=== PATIENT | female | born 1970 | race Caucasian/White ===

== ENCOUNTER 2022-01-16 08:24 | Emergency (ER) | payer SELFPAY ==
--- NOTE | ~2022-01-16 | XR_ITS ---
EXAMINATION: XR KNEE, RIGHT CLINICAL INFORMATION: Knee pain COMPARISON: None TECHNIQUE: 5 images submitted of the right knee. FINDINGS: Trace effusion. Mild patellofemoral spurring. Lateral joint space loss with osteophytic spurring along the marginal aspects. Tibial spine spurring is also noted here. There is no evidence for an acute fracture or dislocation. No bony erosion. Likely degeneration at the articulation of the fibula with the tibia. XR/XR knee RT 3V IMPRESSION: Moderate degenerative changes. No acute finding. Trace effusions likely present.
[2022-01-16 08:56] VITALS: BP 145/74; PULSE 75; RESP 16; TEMP 36.8; O2SAT 98; BMI 41.9
[2022-01-16] MEDS: Ketorolac Tromethamine 30 MG/ML VIAL IM (09:43)
--- NOTE | 2022-01-16 09:44 | ED_ITS ---
HPI - Extremity Injury (Lower) General Chief Complaint: Extremity Injury, Lower Stated Complaint: R knee pain Time Seen by Provider: 01/16/22 09:09 Source: patient Mode of arrival: ambulatory History of Present Illness HPI Narrative: 51-year-old female with no significant past medical history presenting to the ED complaining of right knee pain s/p hyperextension injury after tripping over baseboard last night. Denies falling all the way to ground, direct trauma, head trauma, LOC, Omnicef, tingling, weakness. Has been minimally ambulatory since incident MD complaint: knee injury Onset (ago): hour(s) Related Data Previous Rx's Medication Instructions Recorded acetaminophen 500 mg tablet 500 mg PO Q6H PRN fever or pain 01/16/22 (Tylenol Extra Strength) #14 tabs naproxen 500 mg tablet 500 mg PO BID PRN pain 10 days #20 01/16/22 tabs Allergies Allergy/AdvReac Type Severity Reaction Status Date / Time No Known Allergies Allergy Verified 01/16/22 09:10 Review of Systems Review of Systems: Constitutional: No Fever, No Chills ENT/Mouth: No Ear Pain, No Nasal Congestion, No sore throat, No Swallowing Difficulty Cardiovascular: No Chest Pain, No SOB Respiratory: No Cough Gastrointestinal: No Nausea, No Vomiting, No Diarrhea, No Constipation, No Abdominal pain Genitourinary: No Dysuria, No Urinary Frequency, No Flank Pain Musculoskeletal: + joint pain, No Myalgias, + Joint Swelling Skin: No Skin Lesions, No rash Neuro: No Weakness, No Numbness, No Paresthesias Yes all other systems are reviewed and are negative Constitutional: Constitutional: Reports as per [facility] Past Medical History Attestation statement: The following information was validated with the patient. Social History Social History Advance Directives: No Advance Directives Information Provided: Yes Physical Exam Vital Signs: Vital Signs: Last Vital Signs Temp 98.3 F 01/16/22 08:56 Pulse 75 01/16/22 08:56 Resp 16 01/16/22 08:56 BP 145/74 H 01/16/22 08:56 Pulse Ox 98 01/16/22 08:56 O2 Del Method 01/16/22 08:56 BMI result Body Mass Index 41.9 Const: General: cooperative, healthy appearing and no acute distress Orientation/consciousness: patient oriented x3 Limitations: no limitations HEENT: Head: Yes normal to inspection and Yes atraumatic Ears: hearing grossly normal bilaterally General nose exam: Normal external nose present Face and sinus: Yes normal facial exam Eyes: General: appearance normal, both eyes and all related structures EOM: EOMs intact bilaterally Neck: Neck: Yes normal visual inspection and Yes no meningeal signs Resp: Effort & Inspection: normal respiratory effort and no respiratory distress Cardio: Rate: regular rate Heart sounds: S1 normal heart sound present and S2 normal heart sound present Peripheral pulses: dorsalis pedis present GI: Inspection: Yes normal to inspection Palpation (GI): Soft to palpation, nontender, no guarding and not rigid Skin: Rashes: no rashes Wounds: no wounds Neuro: General: patient oriented x3, tone normal and no meningeal signs Gait exam (Neuro): Normal gait present Extrem: Other: Right knee with mild swelling. Diffusely tender to palpation. Flexion intact, extension limited secondary to pain. Neurovascular intact distally. No erythema or crepitus. No warmth Course Course Course Narrative: XR knee RT 3V IMPRESSION: Moderate degenerative changes. No acute finding. Trace effusions likely present. > Jasbir wrap applied for compression. Recommended patient follow-up with PCP/Orthopedics. Supplied with crutches MDM - Extremity Injury (Lower) MDM Narrative Medical decision making narrative: 51-year-old female with no significant past medical history presenting to the ED complaining of right knee pain s/p hyperextension injury after tripping over baseboard last night. On exam vital signs stable, NAD, physical exam as above. Concern for ligamental injury vs tendon strain or meniscal injury. Rule out fracture. Plan: X-rays Differential Diagnosis Differential diagnosis: Likely acute internal derangement of knee Medical Records Attestation: I reviewed the patient's medical records. Lab Data Attestation: I reviewed the patient's lab results. Procedures Orthopedic Splinting/Casting Injury #1: Side: right Lower Extremity Injury Location: knee Lower Extremity Immobilizer: Jasbir wrap Other Orthopedic Equipment: crutches Discharge Plan Discharge Clinical Impression: Knee sprain Patient Disposition: Home, Self-Care Instructions: Knee Sprain (ED), Crutch Instructions (ED) Additional Instructions: Your x-ray does not show any fracture, does show some fluid on the joint. Wear Jasbir wrap for compression and stability. Use crutches as needed, bear weight as tolerated. It is important for you to follow-up with her primary care doctor and Orthopedics. Ice and elevate Naproxen as an anti-inflammatory/pain medication, take with food. In addition take Tylenol Prescriptions: New acetaminophen [Tylenol Extra Strength] 500 mg tablet 500 mg PO Q6H PRN (Reason: fever or pain) Qty: 14 0RF naproxen 500 mg tablet 500 mg PO BID PRN (Reason: pain) 10 Days Qty: 20 0RF Referrals: Rubi Marcial PA-C [Physician Public Policy Associate] - 1 week
== END 2022-01-16 10:49 | disposition home or self-care (01) ==
PROVIDERS: Emergency Provider Emergency Medicine Emergency Medical Services
DX: S83.91XA Sprain of unspecified site of right knee, initial encounter (principal); W22.8XXA Striking against or struck by other objects, initial encounter; Y93.89 Activity, other specified; Y92.009 Unspecified place in unspecified non-institutional (private) residence as the place of occurrence of the external cause; Y99.9 Unspecified external cause status
CPT/HCPCS: 73562; 96372; 99283; 99284; J1885

== ENCOUNTER 2024-03-13 12:41 | Emergency (ER) | payer OTHER, SELFPAY ==
--- NOTE | ~2024-03-13 | US_ITS ---
EXAMINATION: US PELVIS CLINICAL INFORMATION: Vaginal bleeding, fibroids/ovarian COMPARISON: None available. TECHNIQUE: Ultrasound of the pelvis is performed using both transabdominal and transvaginal transducers along with Doppler. Transvaginal imaging is performed due to inadequate visualization transabdominally. FINDINGS: Uterus: The uterus is anteverted and measures 10.3 x 4.7 x 7.0 cm. The double wall endometrial thickness is 1.1 cm. Uterus revealed multiple uterine fibroids, measured 8.9 x 6.2 x 8.0 cm on the right, 4.8 x 5.5 x 5.2 cm on the left and 5.6 x 4.9 x 5.1 cm in the fundus, all fibroids are unabated endometrium Adnexa: Both ovaries are visualized. There is normal color flow to the adnexa. There is no ovarian torsion. There is no pelvic ascites or fluid collection. There is 2.5 x 2.1 x 1.9 cm cyst in right ovary Right ovary measures 4.5 x 4.2 x 4.2 cm cm. Left ovary measures 3.0 x 1.9 x 3.0 cm. US/US pelvic ovarian doppler IMPRESSION: Multiple uterine fibroids abating endometrium. Left ovarian cyst Electronically signed by: Kashif Serrano MD 03/13/2024 03:38 PM EDT
--- NOTE | ~2024-03-13 | US_ITS ---
EXAMINATION: US PELVIS CLINICAL INFORMATION: Vaginal bleeding, fibroids/ovarian COMPARISON: None available. TECHNIQUE: Ultrasound of the pelvis is performed using both transabdominal and transvaginal transducers along with Doppler. Transvaginal imaging is performed due to inadequate visualization transabdominally. FINDINGS: Uterus: The uterus is anteverted and measures 10.3 x 4.7 x 7.0 cm. The double wall endometrial thickness is 1.1 cm. Uterus revealed multiple uterine fibroids, measured 8.9 x 6.2 x 8.0 cm on the right, 4.8 x 5.5 x 5.2 cm on the left and 5.6 x 4.9 x 5.1 cm in the fundus, all fibroids are unabated endometrium Adnexa: Both ovaries are visualized. There is normal color flow to the adnexa. There is no ovarian torsion. There is no pelvic ascites or fluid collection. There is 2.5 x 2.1 x 1.9 cm cyst in right ovary Right ovary measures 4.5 x 4.2 x 4.2 cm cm. Left ovary measures 3.0 x 1.9 x 3.0 cm. US/US pelvic and transvaginal IMPRESSION: Multiple uterine fibroids abating endometrium. Left ovarian cyst Electronically signed by: Kashif Serrano MD 03/13/2024 03:38 PM EDT
[2024-03-13 13:00] VITALS: BP 151/86; PULSE 79; RESP 18; TEMP 36.6; O2SAT 100; BMI 44.3
--- NOTE | 2024-03-13 13:04 | ED_ITS ---
HPI - General Adult General Chief complaint: Vaginal Bleeding Stated complaint: menstrual for 30 days-sent by urgent care Time Seen by Provider: 03/13/24 18:02 Source: patient, RN notes reviewed and old records reviewed Mode of arrival: ambulatory Limitations: no limitations History of Present Illness ED Provider: Rosa HPI narrative: 53-year-old female presents for 1 month of heavy menstrual bleeding. She says that since February 14 she has had steady menstrual bleeding. States that she was passing clots, number pads that she uses per day changes. She denies lower abdominal pain, pelvic pain, dyspareunia. She says typically her menstrual cycle is regular, lasting 1 month in duration, with 5-6 days of bleeding, that she describes this heavy. She last had this issue in January of 2022, at which point she was told she had fibroids, and had this follow up with a specialist. She says that she did not follow up with a specialist and that her symptoms resolved on their own. She reports 1 daughter born via C- section , 1 spontaneous in 2007. She is sexually active with 1 partner, states that she has no plans to become again. She denies fever dizziness or other systemic symptoms. The patient reports that she has previously been told that she has anemia and was supposed to be taking iron pills which she has not been doing Related Data Previous Rx's ?Medication ?Instructions ?Recorded acetaminophen 500 mg tablet 500 mg PO Q6H PRN fever or pain 01/16/22 (Tylenol Extra Strength) #14 tabs naproxen 500 mg tablet 500 mg PO BID PRN pain 10 days #20 01/16/22 tabs Allergies Allergy/AdvReac Type Severity Reaction Status Date / Time Penicillins [PCN] Allergy Unknown Verified 03/13/24 13:04 Sulfa (Sulfonamide Allergy Anaphylaxis Verified 03/13/24 13:04 Antibiotics) sulfamethoxazole Allergy Anaphylaxis Verified 03/13/24 13:04 [From Bactrim] trimethoprim [From Bactrim] Allergy Anaphylaxis Verified 03/13/24 13:04 Review of Systems 2 Constitutional: Constitutional: Reports as per HPI, Denies chills, Denies fatigue, Denies fever(s) and Denies headache(s) ENT: Denies headache(s) Cardiovascular: Cardiovascular: Denies chest pain and Denies dyspnea Respiratory: Respiratory: Denies cough and Denies dyspnea Gastrointestinal: Gastrointestinal: Denies abdominal pain, Denies constipation and Denies vomiting Genitourinary: Genitourinary: Reports as per HPI, Reports abnormal vaginal bleeding, Reports menorrhagia, Denies dysuria and Denies vaginal discharge Neurologic: Denies headache(s) and Denies focal weakness Endocrine: Endocrine: Denies fatigue PMFSH Social History Social History Advance Directives: No Advance Directives Information Provided: Yes Do you have a plan to hurt others: No Plan Physical Exam ED Vital Signs: Vital Signs - 24 hr 03/13/24 13:00 03/13/24 17:05 03/13/24 19:02 Temperature 97.8 F 98.3 F 98.5 F Pulse Rate 79 83 83 Respiratory Rate 18 18 16 Blood Pressure 151/86 H 148/88 H 153/77 H Pulse Oximetry 100 100 100 Oxygen Delivery Method Room Air Room Air Room Air BMI result Body Mass Index 44.3 Const General: healthy appearing, comfortable, no acute distress, alert and awake Nutritional Appearance: well nourished Orientation/consciousness: patient oriented x3 HENMT Head: Yes normocephalic and Yes atraumatic Throat: Yes posterior oropharynx normal Eyes Eyelids: Yes eyelids normal Conjunctivae: conjunctivae normal Sclerae: sclerae normal Corneas: corneas normal Pupils: Equal, round and reactive pupils present EOM: EOMs intact bilaterally Neck Neck: Yes full ROM Resp Effort & Inspection: normal respiratory effort, able to speak in complete sentences, no audible wheezes and not labored Auscultation: clear to auscultation bilaterally Cardio Rate: regular rate Rhythm: regular rhythm GI Inspection: Yes normal to inspection and No distended Palpation (GI): Soft to palpation, Firmness to palpation present (GI), nontender, no guarding and not rigid Percussion: Yes normal to percussion Auscultation: normoactive bowel sounds Skin General skin exam: no rashes or lesions noted and elasticity normal Neuro General: patient oriented x3 Cranial nerves: Yes CN's II-XII intact bilaterally, Yes Equal, round and reactive pupils present and Yes Bilaterally intact EOM present Cognition (Neuro): normal cognition Extrem Other: Moving all extremities well without any obvious deformities Course Course Course Narrative: RME;' [employer]One by BRIGIDO dougherty. 53-year-old female presents to ED for 30 days of vaginal bleeding. Patient states history of high fibroids but never followed up. Patient states history of anemia but denies any history of blood transfusion. Labs ultrasound ordered. Medical Decision Making Medical Decision Making [facility] Narrative: 63-year-old female presents for evaluation of heavy vaginal bleeding. She was found to be mildly anemic with a hemoglobin 9.9, she reports a history of anemia to be unclear baseline as she has not had labs here recently. Her ultrasound shows uterine fibroids. She is not dizzy, lightheaded. Her vital signs are normal, she is not hypotensive or tachycardic. There was no evidence of severe, acute anemia. The patient's heavy vaginal bleeding may be related to uterine fibroids versus perimenopausal bleeding. Either way, she will likely require follow-up with OBGYN which will be ordered. I discussed this with the patient and she is comfortable with discharge at this time. Discussed possible contraception to help control bleeding however with shared decision-making the patient felt that she would prefer to not start these medications at this time due to wrists of clotting and weight gain Differential Diagnosis Differential Diagnoses: The differential diagnosis associated with the presentation includes Dysmenorrhea Perimenopausal bleeding Uterine fibroids Iron-deficiency anemia Cervical cancer Lab Data [facility] Lab Attestation statement: I reviewed the patient's lab results. No leukocytosis. The patient does have anemia with a hemoglobin 9.9 and hematocrit 31.4. Electrolytes within normal limits. Renal function within normal limits 03/13/24 13:24 03/13/24 13:24 Labs: Lab Results 03/13/24 03/13/24 03/13/24 Range/Units 13:20 13:24 13:25 WBC 8.5 (4.8-10.8) X10*3/uL RBC 3.88 L (4.20-5.50) X10*6/uL Hgb 9.9 L (12.0-16.0) g/dl Hct 31.4 L (37.0-47.0) % MCV 80.9 (80.0-98.0) fL MCH 25.5 L (27.0-33.0) pg MCHC 31.5 (31.0-35.0) g/dl RDW 18.0 H (11.0-16.0) % Plt Count 274 (160-400) X10*3/uL MPV 9.2 L (9.4-12.3) fL Immature Gran % (Auto) 0.4 (0.0-0.4) % Neut % (Auto) 65.6 (45-73) % Lymph % (Auto) 21.2 (20-40) % [place]uel % (Auto) 6.1 (2-11) % Eos % (Auto) 6.2 H (0-4) % Baso % (Auto) 0.5 (0-2) % Lymph # (Auto) 1.8 (1.2-4.9) X10*3/uL Deuel # (Auto) 0.5 (0.1-1.2) X10*3/uL Eos # (Auto) 0.5 H (0.0-0.4) X10*3/uL Baso # (Auto) 0.0 (0.0-0.2) X10*3/uL Abs Immat Gran (auto) 0.03 (0.00-0.03) X10*3/uL Absolute Neuts (auto) 5.6 (2.0-8.3) x10*3/uL Absolute Nucleated RBC 0.000 (0.0-0.012) X10*3/uL Nucleated RBC % (auto) 0.0 (0.0-0.2) /100WBC PT 12.5 H (10.9-12.4) SEC INR 1.1 (0.9-1.1) APTT 59.1 H (26.0-36.8) SEC Sodium 138 (135-145) mmol/L Potassium 4.3 (3.3-5.1) mmol/L Chloride 100 (96-108) mmol/L Carbon Dioxide 28 (22-29) mmol/L Anion Gap 14 (12-20) BUN 16 (9-16) mg/dL Creatinine 0.85 (0.5-1.4) mg/dL Estim Creat Clear Calc 105.5 Estimated GFR > 60 Random Glucose 115 (60-115) mg/dL Calcium 9.7 (8.4-10.2) mg/dL Total Bilirubin 0.6 (0.0-1.0) mg/dL AST 20 (5-31) U/L ALT 22 (0-31) U/L Alkaline Phosphatase 70 (39-117) U/L Total Protein 7.4 (6.5-8.0) g/dL Albumin 4.2 (3.5-5.0) g/dL Beta HCG, Quant < 2 mIU/mL Urine Color Yellow Urine Appearance Clear Urine pH 6.0 (5.0-9.0) Ur Specific [place] 1.015 (1.005-1.025) Urine Protein Negative (Neg-Trace) mg/dL Urine Glucose (UA) Negative (Negative) mg/dL Urine Ketones Negative (Negative) mg/dL Urine Blood Large (3+) H (Negative) Urine Nitrite Negative (Negative) Ur Leukocyte Esterase Negative (Negative) Urine RBC 0-2 (0-2) /HPF Urine WBC 0-5 (0-5) /HPF Ur Squamous Epith Cells 0-2 (0-2) /HPF Urine Bacteria None Seen (None Seen) Hyaline Casts 0-2 (0-2) /LPF Urine Test NEGATIVE (NEGATIVE) Discharge Plan Discharge Clinical Impression: Vaginal bleeding, Uterine fibroid, Anemia Patient Disposition: Home, Self-Care Instructions: Dysmenorrhea (ED), Anemia (ED) Additional Instructions: Your workup showed a mild anemia as well as uterine fibroids. The fibroids may be contributing to heavy vaginal also may be perimenopausal bleeding You may start [id number] iron supplements I recommend that you follow-up with OBGYN, you may call the office of Dr. Barakat to schedule follow-up Return for new or worsening symptoms Prescriptions: No Action acetaminophen [Tylenol Extra Strength] 500 mg tablet 500 mg PO Q6H PRN (Reason: fever or pain) Qty: 14 0RF naproxen 500 mg tablet 500 mg PO BID PRN (Reason: pain) 10 Days Qty: 20 0RF Referrals: Sanford Barakat MD [Physician] - (Uterine fibroids/perimenopausal bleeding) Interventions: ED Discharge Assessment Last Done: 03/13/24 19:02 Discharge Date/Time: 03/13/24 19:06 Print Language: Welsh
[2024-03-13 13:31] LABS: MANUAL DIFF FLAG NO
[2024-03-13 13:32] LABS: Basophils Percent Auto 0.5 % (0-2); Eosinophils Absolute Auto 0.5 X10*3/uL (0.0-0.4); Eosinophils Percent Auto 6.2 % (0-4); Hematocrit 31.4 % (37.0-47.0); Hemoglobin 9.9 g/dl (12.0-16.0); Imm Gran Abs Auto 0.03 X10*3/uL (0.00-0.03); Imm Gran Pct Auto 0.4 % (0.0-0.4); Lymphocytes Absolute Auto 1.8 X10*3/uL (1.2-4.9); Lymphocytes Percent Auto 21.2 % (20-40); Mean Corpuscular HGB Conc 31.5 g/dl (31.0-35.0); Mean Corpuscular Hemoglobin 25.5 pg (27.0-33.0); Mean Corpuscular Volume 80.9 fL (80.0-98.0); Mean Platelet Volume 9.2 fL (9.4-12.3); Monocytes Absolute Auto 0.5 X10*3/uL (0.1-1.2); Monocytes Percent Auto 6.1 % (2-11); Neutrophils Absolute Auto 5.6 x10*3/uL (2.0-8.3); Neutrophils Percent Auto 65.6 % (45-73); Platelet Count 274 X10*3/uL (160-400); Red Blood Count 3.88 X10*6/uL (4.20-5.50); White Blood Count 8.5 X10*3/uL (4.8-10.8)
[2024-03-13 13:35] LABS: Appearance Urine Clear; Color Urine Yellow; Glucose Urine UA Negative (Negative); Leukocyte Esterase Urine Negative (Negative); Nitrite Urine Negative (Negative); Specific Gravity - Urine 1.015 (1.005-1.025); UMIC TRIGGER UACC YES; Urine Blood Large (3+) (Negative); Urine Ketones Negative (Negative); Urine Protein Negative (Neg-Trace)
[2024-03-13 13:37] LABS: UPreg QC Valid YES; Urine Pregnancy NEGATIVE (NEGATIVE)
[2024-03-13 13:42] LABS: Bacteria Urine None Seen (None Seen); Hyaline Casts Urine 0-2 /LPF (0-2); RBC Urine 0-2 /HPF (0-2); Squamous Epithelial Cell Urine 0-2 /HPF (0-2); WBC Urine 0-5 /HPF (0-5)
[2024-03-13 13:53] LABS: Alanine Aminotransferase 22 U/L (0-31); Albumin Level 4.2 g/dL (3.5-5.0); Alkaline Phosphatase 70 U/L (39-117); Anion Gap 14 (12-20); Aspartate Amino Transferase 20 U/L (5-31); Bilirubin Total 0.6 mg/dL (0.0-1.0); Blood Urea Nitrogen 16 mg/dL (9-16); Calcium 9.7 mg/dL (8.4-10.2); Carbon Dioxide 28 mmol/L (22-29); Chloride 100 mmol/L (96-108); Creatinine Clr Calc Pharmacy 105.5; Estimated Glomerular Filt Rate > 60; Glucose Random 115 mg/dL (60-115); HCG Quantitative < 2 mIU/mL; Potassium 4.3 mmol/L (3.3-5.1); Sodium 138 mmol/L (135-145); Total Protein 7.4 g/dL (6.5-8.0)
[2024-03-13 13:56] LABS: INTERNATIONAL NORM RATIO 1.1 (0.9-1.1); Prothrombin Time 12.5 SEC (10.9-12.4)
[2024-03-13 13:58] LABS: Partial Thromboplastin Time 59.1 SEC (26.0-36.8)
[2024-03-13 17:05] VITALS: BP 148/88; PULSE 83; RESP 18; TEMP 36.8; O2SAT 100
[2024-03-13 19:02] VITALS: BP 153/77; PULSE 83; RESP 16; TEMP 36.9; O2SAT 100
== END 2024-03-13 19:06 | disposition home or self-care (01) ==
PROVIDERS: Physician Assistant; Emergency Provider Emergency Medicine; PCP Physician Assistant
DX: D25.9 Leiomyoma of uterus, unspecified (principal); N93.8 Other specified abnormal uterine and vaginal bleeding; D64.9 Anemia, unspecified; R10.2 Pelvic and perineal pain; Z79.899 Other long term (current) drug therapy
CPT/HCPCS: 36415; 76830; 76856; 80053; 81001; 81025; 84702; 85025; 85610; 85730; 93975; 99284

== ENCOUNTER 2024-05-05 08:53 | Outpatient (AMB) | payer OTHER, SELFPAY ==
--- NOTE | 2024-05-05 08:56 | MHC.PC.OV ---
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 Intake Note: New patient visit Lasting Room Supervisor Required: No Allergies Penicillins [PCN] Allergy (Verified 05/05/24 09:01) Unknown Sulfa (Sulfonamide Antibiotics) Allergy (Verified 05/05/24 09:01) Anaphylaxis sulfamethoxazole [From Bactrim] Allergy (Verified 05/05/24 09:01) Anaphylaxis trimethoprim [From Bactrim] Allergy (Verified 05/05/24 09:01) Anaphylaxis Medication List - Last Reconciled 05/05/24 by Wandy Quezada PA-C acetaminophen (Tylenol Extra Strength) 500 mg PO Q6H PRN ferrous sulfate (FeroSul) 325 mg PO DAILY magnesium citrate,mag oxide mg PO naproxen 500 mg PO BID PRN 10 days Tobacco use date assessed: 05/05/24 Dental Screening Dental Screen Date: 05/05/24 Did you have a dental visit in the last 12 months?: Yes Did you have a dental problem in the last 6 months where you did not have access to dental care?: No Was dental information given to patient?: Patient declined HPI director orange est care HPI Details Patient is a 54-year-old female who presents today to [facility]. She is transferring from [place]. She has a significant past medical history of iron-deficiency anemia, likely secondary to menorrhagia, uterine fibroids, obesity, chronic low back pain with previous surgery in 2013, alcohol abuse, binge eating and elevated blood pressure readings. CV: Blood pressure today in the office is 130/82. She believes that she could have sleep apnea as she snores a lot and wakes up feeling tired/refreshed. believes related to drinking. Psych: No withdrawal sx with d/c drinking. She states she feels like she drinks too much when she drinks. She will goes days without drinking. She says that she started heavily drinking at the age of 30. 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 She states that she has significantly cut down to now drinking a pt of [place] instead of a handle. She does not feel like she needs help with this. She is not interested in seeing a therapist. She did recently moved to this area from [facility] to be with family and to get a break from her younger brothers who are dependent on her at times. Musculoskeletal: Left knee pain x 1-2 years. She states intermittent swelling, no erythema. She does get some instability with the joint. Gets worried up and down the stairs. She has to go slow going down the stairs. Never had surgery. No trauma. Has tried otc meds, ice, creams, rest, elevation and no improvement. 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 quit in 2016. Father had prostate ca. [facility] Surgical History History of back surgery H/O section Family History Maternal Grandfather No problems noted. 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 1. Little interest or pleasure in doing things: several days 2. Feeling down, depressed, or hopeless: not at all 3. Trouble falling or staying asleep, or sleeping too much: several days 4. Feeling tired or having little energy: several days 5. Poor appetite or overeating: more than half the days 6. Feeling bad about yourself - or that you are a failure or have let yourself or your family down: not at all 7. Trouble concentrating on things, such as reading the newspaper or watching television: not at all 8. Moving or speaking so slowly that other people could have noticed. Or the opposite - being so fidgety or restless that you have been moving around a lot more than usual: several days 9. Thoughts that you would be better off or of hurting yourself in some way: not at all Total score: 6 Depression Screening Interpretation: Positive Depression Screening Done: Yes 13154 - PHQ-9 Billing: Yes Source: Developed by Drs. Morales Aguilar, Kaykay Gu, Daren Rick and colleagues, with an educational adryan from [employer]. Thrive Questionnaire Date Thrive assessed: 05/02/24 I am a: Patient What is your living situation today?: I have a steady place to live Within the past 12 months, did the food you bought not last and you didn't have the money to get more?: Never true Within the past 12 months, did you worry whether your food would run out before you got money to buy more?: Never true Do you have trouble paying for medicines?: No Do you have trouble getting transportation to medical appointments?: No Do you have trouble paying your heating and electricity bill?: No Do you have trouble taking care of your child, family member or friend?: No Do you have trouble with day-to-day activities such as bathing, preparing meals, shopping, managing finances, etc.?: No Are you currently unemployed and looking for a job?: No Are you interested in more education?: No Please select the resources that you would like help with: None Currently or been in a relationship where the following occur: No concerns reported THRIVE Score: 0 AUDIT C Alcohol Use Questionnaire (AUDIT-C) 1. How often do you have a drink containing alcohol?: 2-3 times a week 2. How many drinks containing alcohol do you have on a typical day when you are drinking?: 10 or more 3. How often do you have six or more drinks on one occasion?: Weekly Total Score: 10 FILI-7 AMB Questionnaire FILI-7 Date FILI - 7 assessed: 05/05/24 Feeling nervous, anxious, or on edge: 1 = Several days Not being able to stop or control worryin = Not at all Worrying too much about different things: 0 = Not at all Trouble relaxin = Not at all Being so restless that it is hard to sit still: 0 = Not at all Becoming easily annoyed or irritable: 0 = Not at all Feeling afraid as if something awful might happen: 1 = Several days Total FILI-7 score (0-4 normal; 5-9 mild; 10-14 moderate; 15-21 severe): 2 Source: Developed by Drs. Morales Aguilar, Kaykay Gu, Daren Rick and colleagues, with an educational adryan from [employer]. FILI-7 Assessment Billing FILI-7 Assessment Tool: FILI-7 Assessment 44490 Physical exam (Primary Care) Vital Signs: Last Vital Signs Pulse 85 05/05/24 09:11 BP 130/82 05/05/24 09:11 Pulse Ox 98 05/05/24 09:11 Oxygen Delivery Method Room Air 05/05/24 09:11 BMI result Body Mass Index 45.8 Tobacco/Smoking Status: Tobacco use Status Tobacco use date assessed 05/05/24 05/05/24 09:09 Patient Tobacco Use Status Former Tobacco user 05/05/24 09:15 e-Cigarette/Vaping Use Former Use 05/05/24 09:15 PHQ-9: PHQ-9 Score PHQ-9: Total score 6 05/05/24 09:23 Depression Screening Interpretation: Positive Thrive Assessment: Date of Thrive Assessment Date Thrive assessed 05/02/24 05/05/24 08:57 Currently or been in a relationship where the following occur: No concerns reported Const Orientation/consciousness: patient oriented x3 HENMT Ears: hearing grossly normal bilaterally Neck Thyroid: Thyroid normal Lymphatic: no lymphadenopathy noted Resp Auscultation: clear to auscultation bilaterally Cardio Rate: regular rate Rhythm: regular rhythm Heart sounds: S1 normal heart sound present and S2 normal heart sound present GI Inspection: Yes normal to inspection Palpation (GI): Soft to palpation and Other GI palpation findings present (nontender, no cva tenderness) Auscultation: normoactive bowel sounds Rectal Exam - Female: deferred Skin General skin exam: no rashes or lesions noted Neuro General: patient oriented x3, gait normal and no focal motor deficits Results Reviewed Results Reviewed: Laboratory Tests 03/13/24 13:24 WBC 8.5 RBC 3.88 L Hgb 9.9 L Hct 31.4 L Plt Count 274 Sodium 138 Potassium 4.3 Chloride 100 Carbon Dioxide 28 Anion Gap 14 BUN 16 Creatinine 0.85 Estim Creat Clear Calc 105.5 Estimated GFR > 60 Random Glucose 115 Calcium 9.7 Total Bilirubin 0.6 AST 20 ALT 22 Alkaline Phosphatase 70 Total Protein 7.4 Albumin 4.2 US/US pelvic and transvaginal IMPRESSION: Multiple uterine fibroids abating endometrium. Left ovarian cyst Coding Level of Care Code New Pt Level 4 (99017) Complex EM visit Add On G2211 Diagnoses Uterine fibroid D25.9 KENZIE (iron deficiency anemia) D50.9 Snoring R06.83 Alcohol abuse F10.10 Elevated blood pressure reading without diagnosis of hypertension R03.0 IFG (impaired fasting glucose) R73.01 Left knee pain M25.562 Severe obesity (BMI >= 40) E66.01 Additional Codes PHQ-9 - 25485 - PHQ-9 Billing: Yes ([id number]) FILI-7 Assessment Billing - FILI-7 Assessment Tool: FILI-7 Assessment 66043 ([id number]) Assessment & Plan Assessment & Plan (1) Uterine fibroid: Code(s): D25.9 - Leiomyoma of uterus, unspecified Category: Medical Plan: Referral to contaminated land consultant (2) KENZIE (iron deficiency anemia): Code(s): D50.9 - Iron deficiency anemia, unspecified Category: Medical Plan: On iron supplements. (3) Snoring: Code(s): R06.83 - Snoring Category: Medical Plan: Sleep study ordered. Encouraged weight loss in abstinence from alcohol (4) Alcohol abuse: Code(s): F10.10 - Alcohol abuse, uncomplicated Category: Social Hx Plan: As above. Offered referral to behavioral health but declines. (5) Elevated blood pressure reading without diagnosis of hypertension: Code(s): R03.0 - Elevated blood-pressure reading, without diagnosis of hypertension Category: Medical Plan: We will recheck in 1 month. No known history of hypertension. (6) IFG (impaired fasting glucose): Code(s): R73.01 - Impaired fasting glucose Category: Medical Plan: Has check blood sugars at home and states that they are around 120. We will check an A1c. (7) Left knee pain: Code(s): M25.562 - Pain in left knee Category: Medical Plan: X-ray ordered. Referral to ortho (8) Severe obesity (BMI >= 40): Code(s): E66.01 - Morbid (severe) obesity due to excess calories Category: Medical Plan: Labs ordered. I have encouraged her to reduce her carbohydrate and sugar intake. Encouraged increased exercise and we discussed stopping eating after 19:00. Plan Referral for colonoscopy. Labs ordered. Short term follow up. Sooner if needed. Patient understands and agrees with the plan. Orders: Orders Lipid Panel Today D25.9 - Leiomyoma of uterus, unspecified, D50.9 - Iron deficiency anemia, unspecified, F10.10 - Alcohol abuse, uncomplicated, R03.0 - Elevated blood-pressure reading, without diagnosis of hypertension, R06.83 - Snoring, R73.01 - Impaired fasting glucose Vitamin B12 and Folate Today D25.9 - Leiomyoma of uterus, unspecified, D50.9 - Iron deficiency anemia, unspecified, F10.10 - Alcohol abuse, uncomplicated, R03.0 - Elevated blood-pressure reading, without diagnosis of hypertension, R06.83 - Snoring, R73.01 - Impaired fasting glucose Ferritin Today D25.9 - Leiomyoma of uterus, unspecified, D50.9 - Iron deficiency anemia, unspecified, F10.10 - Alcohol abuse, uncomplicated, R03.0 - Elevated blood-pressure reading, without diagnosis of hypertension, R06.83 - Snoring, R73.01 - Impaired fasting glucose XR knee LT 2V Today M25.561 - Pain in right knee, M25.562 - Pain in left knee Complete Blood Count Auto Diff Today D25.9 - Leiomyoma of uterus, unspecified, D50.9 - Iron deficiency anemia, unspecified, F10.10 - Alcohol abuse, uncomplicated, R03.0 - Elevated blood-pressure reading, without diagnosis of hypertension, R06.83 - Snoring, R73.01 - Impaired fasting glucose Comprehensive [place]. Panel Fast Today D25.9 - Leiomyoma of uterus, unspecified, D50.9 - Iron deficiency anemia, unspecified, F10.10 - Alcohol abuse, uncomplicated, R03.0 - Elevated blood-pressure reading, without diagnosis of hypertension, R06.83 - Snoring, R73.01 - Impaired fasting glucose TSH reflex Free T4 Today D25.9 - Leiomyoma of uterus, unspecified, D50.9 - Iron deficiency anemia, unspecified, F10.10 - Alcohol abuse, uncomplicated, R03.0 - Elevated blood-pressure reading, without diagnosis of hypertension, R06.83 - Snoring, R73.01 - Impaired fasting glucose Hemoglobin A1c Today D25.9 - Leiomyoma of uterus, unspecified, D50.9 - Iron deficiency anemia, unspecified, F10.10 - Alcohol abuse, uncomplicated, R03.0 - Elevated blood-pressure reading, without diagnosis of hypertension, R06.83 - Snoring, R73.01 - Impaired fasting glucose IRON PROFILE Today D25.9 - Leiomyoma of uterus, unspecified, D50.9 - Iron deficiency anemia, unspecified, F10.10 - Alcohol abuse, uncomplicated, R03.0 - Elevated blood-pressure reading, without diagnosis of hypertension, R06.83 - Snoring, R73.01 - Impaired fasting glucose MM screening mammo BI Today Z12.31 - Encounter for screening mammogram for malignant neoplasm of breast RT home sleep study Today R06.81 - Apnea, not elsewhere classified, R06.83 - Snoring Referrals PRODUCT SUPPORT REPRESENTATIVE Referral Z01.419 - Encounter for gynecological examination (general) (routine) without abnormal findings Open Access Screening Colonoscopy Referral Z12.11 - Encounter for screening for malignant neoplasm of colon Orthopedics Referral M25.562 - Pain in left knee
[2024-05-05 09:11] VITALS: BP 130/82; PULSE 85; O2SAT 98; BMI 45.8
== END 2024-05-05 09:55 | disposition home or self-care (01) ==
PROVIDERS: PCP Physician Assistant; Visit Provider Physician Assistant
DX: D50.9 Iron deficiency anemia, unspecified (principal); D25.9 Leiomyoma of uterus, unspecified; E66.01 Morbid (severe) obesity due to excess calories; Z68.42 Body mass index [BMI] 45.0-49.9, adult; R06.83 Snoring; F10.10 Alcohol abuse, uncomplicated; R03.0 Elevated blood-pressure reading, without diagnosis of hypertension; R73.01 Impaired fasting glucose; M25.562 Pain in left knee

== ENCOUNTER 2024-05-05 08:53 | Outpatient (REF) | payer OTHER, SELFPAY ==
--- NOTE | ~2024-05-05 | XR_ITS ---
EXAMINATION: XR KNEE LEFT CLINICAL INFORMATION: Pain in right knee M25.561. COMPARISON: None available. TECHNIQUE: Two views of the left knee. FINDINGS: AP and lateral views of the RIGHT knee demonstrate moderate narrowing of the lateral compartment with lateral marginal osteophytes. Small joint effusion. Small posterior patellar osteophytes. XR/XR knee LT 2V IMPRESSION: Moderate degenerative changes in the lateral compartment. Small joint effusion. Electronically signed by: Crystal Cruz MD 06/15/2024 09:26 AM T[facility] BURNS
== END 2024-05-05 08:54 | disposition home or self-care (01) ==
LOC: HO.XRAY 08:53
PROVIDERS: PCP Physician Assistant; Visit Provider Physician Assistant
DX: D25.9 Leiomyoma of uterus, unspecified (principal); D50.9 Iron deficiency anemia, unspecified; R06.83 Snoring; F10.10 Alcohol abuse, uncomplicated; R03.0 Elevated blood-pressure reading, without diagnosis of hypertension; R73.01 Impaired fasting glucose; E66.01 Morbid (severe) obesity due to excess calories; Z68.42 Body mass index [BMI] 45.0-49.9, adult; M25.562 Pain in left knee
CPT/HCPCS: 73560; 96127

== ENCOUNTER 2024-05-05 10:03 | Outpatient (REF) | payer OTHER, SELFPAY ==
[2024-05-05 11:25] LABS: MANUAL DIFF FLAG NO
[2024-05-05 11:39] LABS: Basophils Absolute Auto 0.1 X10*3/uL (0.0-0.2); Basophils Percent Auto 0.6 % (0-2); Eosinophils Absolute Auto 0.4 X10*3/uL (0.0-0.4); Eosinophils Percent Auto 4.6 % (0-4); Hematocrit 32.7 % (37.0-47.0); Hemoglobin 10.2 g/dl (12.0-16.0); Imm Gran Abs Auto 0.03 X10*3/uL (0.00-0.03); Imm Gran Pct Auto 0.3 % (0.0-0.4); Lymphocytes Absolute Auto 1.6 X10*3/uL (1.2-4.9); Lymphocytes Percent Auto 18.4 % (20-40); Mean Corpuscular HGB Conc 31.2 g/dl (31.0-35.0); Mean Corpuscular Hemoglobin 26.3 pg (27.0-33.0); Mean Corpuscular Volume 84.3 fL (80.0-98.0); Mean Platelet Volume 10.8 fL (9.4-12.3); Monocytes Absolute Auto 0.5 X10*3/uL (0.1-1.2); Monocytes Percent Auto 5.6 % (2-11); Neutrophils Absolute Auto 6.1 x10*3/uL (2.0-8.3); Neutrophils Percent Auto 70.5 % (45-73); Platelet Count 310 X10*3/uL (160-400); Red Blood Count 3.88 X10*6/uL (4.20-5.50); Red Cell Distribution Width 17.2 % (11.0-16.0); White Blood Count 8.7 X10*3/uL (4.8-10.8)
[2024-05-05 11:47] LABS: Estimated Average Glucose 146 mg/dL; Hemoglobin A1C 130.1559 umol/L; Hemoglobin A1c % 6.7 % (<6.0); Total Hemoglobin (HGBA1C) 2618.6479 umol/L
[2024-05-05 12:33] LABS: Alanine Aminotransferase 21 U/L (0-31); Albumin Level 4.3 g/dL (3.5-5.0); Alkaline Phosphatase 70 U/L (39-117); Anion Gap 11 (12-20); Aspartate Amino Transferase 20 U/L (5-31); Bilirubin Total 0.5 mg/dL (0.0-1.0); Blood Urea Nitrogen 17 mg/dL (9-16); Calcium 9.5 mg/dL (8.4-10.2); Carbon Dioxide 29 mmol/L (22-29); Chloride 102 mmol/L (96-108); Cholesterol 193 mg/dL (<200); Estimated Glomerular Filt Rate > 60; Glucose Fasting 127 mg/dL (60-99); HDL Cholesterol 37 mg/dL (>40); Iron 37 mcg/dL (30-160); LDL Cholesterol Calculated 119 mg/dL (<100); Percent Iron Saturation 9 % (15-50); Potassium 4.3 mmol/L (3.3-5.1); Sodium 138 mmol/L (135-145); Total Iron Binding Capacity 391 mcg/dL (228-428); Total Protein 7.5 g/dL (6.5-8.0); Triglycerides 188 mg/dL (<150); Unsaturated Iron Binding 354 ug/dL
[2024-05-05 12:49] LABS: Ferritin 19 ng/mL (10-250); TSH reflex Free T4 2.11 uIU/mL (0.32-4.0)
[2024-05-05 12:57] LABS: Folate 6.5 ng/mL (> or = 4.0); Vitamin B12 534 pg/mL (200-900)
== END 2024-05-05 10:04 | disposition home or self-care (01) ==
LOC: HO.WFDLDS 10:03
PROVIDERS: Visit Provider Physician Assistant
DX: D50.9 Iron deficiency anemia, unspecified (principal); D25.9 Leiomyoma of uterus, unspecified; R06.83 Snoring; F10.10 Alcohol abuse, uncomplicated; R03.0 Elevated blood-pressure reading, without diagnosis of hypertension; R73.01 Impaired fasting glucose
CPT/HCPCS: 36415; 80053; 80061; 82607; 82728; 82746; 83036; 83540; 84443; 85025

== ENCOUNTER 2024-06-08 08:40 | Outpatient (AMB) | payer OTHER, SELFPAY ==
--- NOTE | 2024-06-08 08:42 | A.OFFPC_ITS ---
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 Required: No Is last menstrual period known: Yes Last menstrual period: 05/20/24 Post menopausal: No Patient : No Allergies Penicillins [PCN] Allergy (Verified 06/08/24 08:46) Unknown Sulfa (Sulfonamide Antibiotics) Allergy (Verified 06/08/24 08:46) Anaphylaxis sulfamethoxazole [From Bactrim] Allergy (Verified 06/08/24 08:46) Anaphylaxis trimethoprim [From Bactrim] Allergy (Verified 06/08/24 08:46) Anaphylaxis Medication List - Last Reconciled 06/08/24 by Wandy Quezada PA-C acetaminophen (Tylenol Extra Strength) 500 mg PO Q6H PRN blood sugar diagnostic (FreeStyle Lite Strips) Use daily As directed to check blood glucose blood-glucose meter (FreeStyle Lite Meter kit) Use daily As directed to check blood sugars ferrous sulfate (FeroSul) 325 mg PO DAILY lancets (FreeStyle Lancets) use daily as directed to check blood glucose magnesium citrate,mag oxide mg PO Tobacco use date assessed: 06/08/24 Dental Screening Dental Screen Date: 06/08/24 Did you have a dental visit in the last 12 months?: No Did you have a dental problem in the last 6 months where you did not have access to dental care?: No Was dental information given to patient?: No HPI bp check, labs HPI Details Patient is a 54-year-old female who presents today for a follow up. She is relatively new here. She has a significant past medical history of iron- deficiency anemia, likely secondary to menorrhagia, uterine fibroids, obesity, chronic low back pain with previous surgery in 2013, alcohol abuse, binge eating and elevated blood pressure readings. CV: Blood pressure today in the office is 132/64. She was referred for a sleep study at our last visit for suspected sleep apnea and is booked on 07/04. Endo: a1c 6.7. She states that she has never had diabetes but has had some intermittent elevated blood sugars. Since our last visit I did send in testing supplies and she has been checking her blood sugars and states that the highest she has had has 134 fasting. She denies any polyuria or polydipsia. Since our last visit she states that she has not worked as hard as she should have on her diet. She has struggled cutting back on alcohol as well. She is frustrated with this. She does have a family history of type 2 diabetes. She states that she knows she needs to be better with some of her changes. Psych: No withdrawal sx with d/c drinking. She states she feels like she drinks too much when she drinks. She will goes days without drinking. She says that she started heavily drinking at the age of 30. 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 She states that she has significantly cut down to now drinking a pt of Eric instead of a handle. She does not feel like she needs help with this. She is not interested in seeing a therapist. She did recently moved to this area from [facility] to be with family and to get a break from her younger brothers who are dependent on her at times. Musculoskeletal: Left knee pain x 1-2 years. She states intermittent swelling, no erythema. She does get some instability with the joint. Gets worried up and down the stairs. She did have an x-ray of this but the reading is not back yet. Has an appointment with Orthopedics on 06/13. 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 Former smoker- smoked for 10 years on and off socially with drinking (never a half pack per day). quit in 2015. Father had prostate ca. [facility] Surgical History History of back surgery H/O section Family History Maternal Grandfather No problems noted. 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 1. Little interest or pleasure in doing things: several days 2. Feeling down, depressed, or hopeless: not at all 3. Trouble falling or staying asleep, or sleeping too much: several days 4. Feeling tired or having little energy: several days 5. Poor appetite or overeating: more than half the days 6. Feeling bad about yourself - or that you are a failure or have let yourself or your family down: not at all 7. Trouble concentrating on things, such as reading the newspaper or watching television: not at all 8. Moving or speaking so slowly that other people could have noticed. Or the opposite - being so fidgety or restless that you have been moving around a lot more than usual: not at all 9. Thoughts that you would be better off or of hurting yourself in some way: not at all Total score: 5 Depression Screening Interpretation: Positive Depression Screening Follow-up: Declines treatment Depression Screening Done: Yes 89822 - PHQ-9 Billing: Yes Source: Developed by Drs. Morales Aguilar, Kaykay Gu, Daren Rick and colleagues, with an educational adryan from [employer]. Thrive Questionnaire Date Thrive assessed: 06/01/24 I am a: Patient What is your living situation today?: I have a steady place to live Within the past 12 months, did the food you bought not last and you didn't have the money to get more?: Never true Within the past 12 months, did you worry whether your food would run out before you got money to buy more?: Never true Do you have trouble paying for medicines?: No Do you have trouble getting transportation to medical appointments?: No Do you have trouble paying your heating and electricity bill?: No Do you have trouble taking care of your child, family member or friend?: No Do you have trouble with day-to-day activities such as bathing, preparing meals, shopping, managing finances, etc.?: No Are you currently unemployed and looking for a job?: No Are you interested in more education?: No Please select the resources that you would like help with: None Currently or been in a relationship where the following occur: No concerns reported THRIVE Score: 0 AUDIT C Alcohol Use Questionnaire (AUDIT-C) 1. How often do you have a drink containing alcohol?: 2-4 times a month 2. How many drinks containing alcohol do you have on a typical day when you are drinking?: 10 or more 3. How often do you have six or more drinks on one occasion?: Weekly Total Score: 9 Score Reviewed/Action Taken: Yes FILI-7 AMB Questionnaire FILI-7 Date FILI - 7 assessed: 05/05/24 Feeling nervous, anxious, or on edge: 2 = More than half the days Not being able to stop or control worryin = Not at all Worrying too much about different things: 0 = Not at all Trouble relaxin = Not at all Being so restless that it is hard to sit still: 0 = Not at all Becoming easily annoyed or irritable: 0 = Not at all Feeling afraid as if something awful might happen: 2 = More than half the days Total FILI-7 score (0-4 normal; 5-9 mild; 10-14 moderate; 15-21 severe): 4 Source: Developed by Drs. Morales Aguilar, Kaykay Gu, Daren Rick and colleagues, with an educational adryan from [employer]. FILI-7 Assessment Billing FILI-7 Assessment Tool: FILI-7 Assessment 49662 Physical exam (Primary Care) Vital Signs: Last Vital Signs Temp 98 F 06/08/24 08:47 Pulse 74 06/08/24 08:47 Resp 16 06/08/24 08:47 BP 132/64 06/08/24 08:47 Pulse Ox 96 06/08/24 08:47 Oxygen Delivery Method Room Air 06/08/24 08:47 BMI result Body Mass Index 44.1 BMI Assessment/Plan discussion: High BMI High, discussed plan: lifestyle, weight reduction, dietary, physical activity, alcohol moderation and other (We will start Ozempic) Tobacco/Smoking Status: Tobacco use Status Tobacco use date assessed 06/08/24 06/08/24 08:51 Patient Tobacco Use Status Former Tobacco user 06/08/24 08:44 e-Cigarette/Vaping Use Former Use 06/08/24 08:44 PHQ-9: PHQ-9 Score PHQ-9: Total score 5 06/08/24 08:44 Depression Screening Interpretation: Positive Depression Screening Follow-up: Declines treatment Thrive Assessment: Date of Thrive Assessment Date Thrive assessed 06/01/24 06/08/24 08:44 Currently or been in a relationship where the following occur: No concerns reported Const Orientation/consciousness: patient oriented x3 HENMT Ears: hearing grossly normal bilaterally Neck Thyroid: Thyroid normal Lymphatic: no lymphadenopathy noted Resp Auscultation: clear to auscultation bilaterally Cardio Rate: regular rate Rhythm: regular rhythm Heart sounds: S1 normal heart sound present and S2 normal heart sound present GI Inspection: Yes normal to inspection Palpation (GI): Soft to palpation and Other GI palpation findings present (nontender, no cva tenderness) Auscultation: normoactive bowel sounds Rectal Exam - Female: deferred Skin General skin exam: no rashes or lesions noted Neuro General: patient oriented x3, gait normal and no focal motor deficits Results Reviewed Results Reviewed: Laboratory Tests 05/05/24 10:04 Sodium 138 Potassium 4.3 Chloride 102 Carbon Dioxide 29 Creatinine 0.84 Estimated GFR > 60 Fasting Glucose 127 H Estimat Average Glucose 146 Hemoglobin A1c % 6.7 H Calcium 9.5 Iron 37 TIBC 391 AST 20 ALT 21 Alkaline Phosphatase 70 Triglycerides 188 H Cholesterol 193 LDL Cholesterol, Calc 119 H HDL Cholesterol 37 L Vitamin B12 534 Folate 6.5 TSH 2.11 Coding Level of Care Code Est Pt Level 5 (01819) Complex EM visit Add On G2211 Diagnoses Type 2 diabetes, diet controlled E11.9 Severe obesity (BMI >= 40) E66.01 Alcohol abuse F10.10 Additional Codes PHQ-9 - 42571 - PHQ-9 Billing: Yes ([id number]) FILI-7 Assessment Billing - FILI-7 Assessment Tool: FILI-7 Assessment 99977 ([id number]) Assessment & Plan Assessment & Plan (1) Type 2 diabetes, diet controlled: Code(s): E11.9 - Type 2 diabetes mellitus without complications Category: Medical Plan: This is a new diagnosis for her. I spent more approximately 60 minutes in [id number] time today discussing the pathophysiology of diabetes, the difference between type 1 and type 2 diabetes and complications associated with diabetes including blindness, stroke, kidney disease, amputations, infections etc.. I have referred her to diabetic Education. We will start Ozempic. We discussed risks and benefits including nausea, vomiting and risk of pancreatitis. Has no history of this or family history of thyroid or endocrine malignancies. She has testing supplies at home. We reviewed signs and symptoms of hyper and hypoglycemia that would require emergent medical treatment. One-month follow up. Sooner if needed. (2) Severe obesity (BMI >= 40): Code(s): E66.01 - Morbid (severe) obesity due to excess calories Category: Medical Plan: Again reviewed healthy lifestyle modifications. (3) Alcohol abuse: Code(s): F10.10 - Alcohol abuse, uncomplicated Category: Medical Plan: Encouraged her to quit drinking. She tells me that she thinks that she will be able to as she is not a daily drinker. We did discuss my concerns with this and the Ozempic with the risks of pancreatitis. She states that she has never had pancreatitis and feels confident that she does not need to drink. Orders: Referrals Allergy & Immunology Referral L30.9 - Dermatitis, unspecified Diabetes Education Referral E11.9 - Type 2 diabetes mellitus without complications, E66.01 - Morbid (severe) obesity due to excess calories Medications: New semaglutide (Ozempic) 0.25 mg (0.368 mL) subcut QWEEK 3 mL 2RF
[2024-06-08 08:47] VITALS: BP 132/64; PULSE 74; RESP 16; TEMP 36.6; O2SAT 96; BMI 44.1
== END 2024-06-08 09:22 | disposition home or self-care (01) ==
PROVIDERS: PCP Physician Assistant; Visit Provider Physician Assistant
DX: E11.9 Type 2 diabetes mellitus without complications (principal); E66.01 Morbid (severe) obesity due to excess calories; Z68.41 Body mass index [BMI] 40.0-44.9, adult; F10.10 Alcohol abuse, uncomplicated

== ENCOUNTER → 2024-06-08 08:40 | Outpatient (BNVA) | payer OTHER, SELFPAY | PROVIDERS: PCP Physician Assistant; Visit Provider Physician Assistant | DX: E11.9 Type 2 diabetes mellitus without complications (principal); E66.01 Morbid (severe) obesity due to excess calories; Z68.41 Body mass index [BMI] 40.0-44.9, adult; F10.10 Alcohol abuse, uncomplicated | CPT/HCPCS: 96127 ==

== ENCOUNTER 2024-06-13 09:23 | Outpatient (REF) | payer OTHER, SELFPAY ==
--- NOTE | ~2024-06-13 | XR_ITS ---
EXAMINATION: XR KNEE 1-2 VIEWS LEFT, XR KNEE 1 VIEW RIGHT HISTORY: M25.562 - Pain in left knee COMPARISON: Comparison is made with the prior examination of the left knee dated 05/05/2024. FINDINGS: Standing AP views of the both knees and an additional sunrise patella view of the left knee are submitted. Osseous mineralization is normal. There is no fracture or dislocation. There is mild osteoarthritis of the lateral compartments of both knees with osteophyte formation. Moderate osteoarthritis is seen involving the patellofemoral compartment. The soft tissues are unremarkable. XR/XR knee LT 2V IMPRESSION: Degenerative changes of the knees as described. Electronically signed by: Morales Mackay MD 06/16/2024 08:46 AM TOL[facility]
--- NOTE | ~2024-06-13 | XR_ITS ---
EXAMINATION: XR KNEE 1-2 VIEWS LEFT, XR KNEE 1 VIEW RIGHT HISTORY: M25.562 - Pain in left knee COMPARISON: Comparison is made with the prior examination of the left knee dated 05/05/2024. FINDINGS: Standing AP views of the both knees and an additional sunrise patella view of the left knee are submitted. Osseous mineralization is normal. There is no fracture or dislocation. There is mild osteoarthritis of the lateral compartments of both knees with osteophyte formation. Moderate osteoarthritis is seen involving the patellofemoral compartment. The soft tissues are unremarkable. XR/XR knee RT 1V IMPRESSION: Degenerative changes of the knees as described. Electronically signed by: Morales Mackay MD 06/16/2024 08:46 AM TOLU
== END 2024-06-13 09:24 | disposition home or self-care (01) ==
LOC: HO.HOSX 09:23
PROVIDERS: Visit Provider Physician Assistant
DX: M25.562 Pain in left knee (principal); M25.561 Pain in right knee
CPT/HCPCS: 73560

== ENCOUNTER 2024-06-13 11:44 | Outpatient (AMB) | payer OTHER, SELFPAY ==
--- NOTE | 2024-06-13 11:52 | MHC.OFFVIS ---
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 Patient reports she has pain in both knees, both are in bad shape. States she has swelling, gives out when walking, pain increases with walking up a flight of stairs. She over compensates with both knees and walks on her tippy toes due to pain. Denies knee injections,numbness/tingling, injury or falls. 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 She states she has pain with prolonged walking and stair use. She states the pain is along the anterior aspect of the knee. [facility] Surgical History History of back surgery H/O section Family History Maternal Grandfather No problems noted. 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 Lateral retropatellar tenderness. ROM full with crepitus. Negative steinmans. No ligamentous laxity. NVI. Right knee skin intact, no erythema or joint effusion. Tenderness along the medial joint line. ROM full with crepitus. Negative steinmans. No ligamentous laxity. NVI. Results Reviewed Results Reviewed: X-rays of bilateral knees show lateralization of the patella with osteophyte formation Assessment & Plan Assessment & Plan (1) Osteoarthritis of patellofemoral joints of both knees: Code(s): M17.0 - Bilateral primary osteoarthritis of knee Category: Medical Plan We discussed options today which include physical therapy which an order was placed. I also sent a prescription for Celebrex to take twice a day for 2 weeks to help with her acute flare-ups. If symptoms persist or worsen over the next 6-8 weeks she can contact our office so we can discuss steroid injection otherwise follow up as needed. Orders: Orders XR knee LT 2V Today M25.562 - Pain in left knee PT Evaluation and Treatment Today M17.0 - Bilateral primary osteoarthritis of knee XR knee RT 1V Today M25.561 - Pain in right knee Medications: New celecoxib (Celebrex) 200 mg PO BID 60 caps 3RF 30 days Coding Level of Care Code New Pt Level 3 (15097) Complex EM visit Add On G2211 Diagnoses Osteoarthritis of patellofemoral joints of both knees M17.0
[2024-06-13 11:54] VITALS: BMI 44.1
== END 2024-06-13 12:24 | disposition home or self-care (01) ==
PROVIDERS: PCP Physician Assistant; Visit Provider Physician Assistant
DX: M17.0 Bilateral primary osteoarthritis of knee (principal)
CPT/HCPCS: 99203

== ENCOUNTER → 2024-06-13 11:45 | Outpatient (BNV) | payer OTHER, SELFPAY | PROVIDERS: Visit Provider Radiology Diagnostic Radiology | DX: M25.562 Pain in left knee (principal); M25.561 Pain in right knee | CPT/HCPCS: 73560 ==

== ENCOUNTER 2024-06-27 12:21 | Outpatient (AMB) | payer OTHER, SELFPAY ==
--- NOTE | 2024-06-27 13:19 | A.OFFVIS_ITS ---
Intake Intake Visit Reasons: Type 2 diabetes mellitus without complications Rehab Liaison Required: No Accompanied by: Self / Same As Patient Allergies Penicillins [PCN] Allergy (Verified 06/13/24 12:01) Unknown Sulfa (Sulfonamide Antibiotics) Allergy (Verified 06/13/24 12:01) Anaphylaxis sulfamethoxazole [From Bactrim] Allergy (Verified 06/13/24 12:01) Anaphylaxis trimethoprim [From Bactrim] Allergy (Verified 06/13/24 12:01) Anaphylaxis HPI Comprehensive Diabetes Asmnt Most Recent Diabetes Results: Cholesterol 193 mg/dL (<200) 05/05/24 HDL Cholesterol 37 mg/dL (>40) L 05/05/24 Triglycerides 188 mg/dL (<150) H 05/05/24 Creatinine 0.84 mg/dL (0.5-1.4) 05/05/24 Blood Urea Nitrogen 17 mg/dL (9-16) H 05/05/24 Sodium 138 mmol/L (135-145) 05/05/24 Potassium 4.3 mmol/L (3.3-5.1) 05/05/24 Chloride 102 mmol/L (96-108) 05/05/24 Carbon Dioxide 29 mmol/L (22-29) 05/05/24 Calcium 9.5 mg/dL (8.4-10.2) 05/05/24 AST 20 U/L (5-31) 05/05/24 ALT 21 U/L (0-31) 05/05/24 Total Protein 7.5 g/dL (6.5-8.0) 05/05/24 Albumin 4.3 g/dL (3.5-5.0) 05/05/24 [facility] Surgical History History of back surgery H/O section Family History Maternal Grandfather No problems noted. 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 2= needs review? 3= comprehend keep point? 4= demonstrates understanding/ competent? NC= Not Covered Topics Learning Objective: Initial visit Initial or post srvc Initial or post srvc Initial or post srvc Initial or post srvc Initial or post srvc Post srvc Comments Pre Edu-assessment/plan Outcome or reassess Outcome or reassess Outcome or reassess Outcome or reassess Outcome or reassess Outcome or reassess Diabetes pathophysiology 1 Healthy eating 1 Being active 1 Taking medication 1 Monitoring glucose 1 A Acute complication Chronic complicated Lifestyle and healthy coping 1 Diabetes distress in support ?Diabetes pathophysiology: ?Defined diabetes med identify own type of diabetes; list 3 options for treating diabetes Healthy eating: ?Described effect of type, amount and ?timing of food on blood glucose; list 3 methods for planning meal Being active: ?State effect of exercise on blood glucose level Taking medication: ?State effect of diabetes medications on diabetes; name diabetes medications taking, action and side effects Monitoring glucose: ?Identify recommended blood glucose targets and personal target Acute complication: ?List symptoms and treatment of hyper and hypoglycemia, DKA, sick day guidelines and guidelines for severe weather or situations of crisis and diabetes supply manage Chronic complication: ?To find the relationship of blood glucose levels to long- term complications of diabetes in screening and preventative measures Lifestyle and healthy coping: ?Described lifestyle and healthy coping strategies to rule out diabetes self-management Diabetes to stress and support: ?Recognize Diabetes to stress and be able to identified support options Learning objectives: The patient was provided with verbal and written education on the following topics as outlined below. Assess patient education level/literacy/barriers, patient has sedentary job, reports she does not exercise. Patient also reports that she has stopped drinking alcohol since her last visit with PA at the beginning 06/20/2024 Patient questions/concerns patient diagnosed with diabetes on 05/05/2024 with an A1c of 6.7% The patient met all learning objectives and was able to verbalize understanding and provide teach back of education topics discussed . The patient was provided with the opportunity to ask questions and all questions were answered. Topics covered in today?s session included: Medications (If applicable) * Name of medication? * Dosing/administration instructions? * Mechanism of action? * Potential side effects? * Potential adverse reaction and appropriate treatment? * Review onset, peak, duration Assess for concerns re: insurance coverage, cost, barriers to compliance Insulin/Injectables (If applicable) * Storage/care of insulin?? * Injection sites? * Site rotation? * Onset, peak, duration * Drawing up insulin? * Injecting insulin/other injectables? * Sharps disposal Continuous blood glucose monitoring (if applicable) Hypoglycemia and Hyperglycemia * Signs and symptoms? * Causes?? * Treatment? * Preventing hypoglycemia? * When to seek medical attention Target Goals: * Blood glucose targets and how you feel when your blood glucose is in and out of your target ranges. * Monitoring and knowing your A1C. * What can make blood glucose go up and down and preventing high and low blood glucose. * Review of blood sugar targets in expected goal range and outside of expected goal range. * Problem solving and preventing hyper/hypoglycemia. * Sick day management of diabetes. * Using blood sugar results in decision making process in managing diabetes. ?Patient was receptive to information provided and participated in the discussion. Asked?appropriate questions and demonstrated good understanding of the topics discussed.? ? Educational Materials: The patient was provided with the following written educational materials: Target Goal handout Smart Goal: Patient will identify current foods in her meal plan that contain carbohydrates before next visit on 07/11/2024 Patient Response to instructions: Comprehension of Instructions: good Readiness to make changes:? Contemplate How confident they feel about making changes: Fair Portions of this note were created using voice recognition software, please excuse any words or phrases that may have been misinterpreted. Patient Instructions: Patient will follow-up with staff development educator on 07/11/2024 Coding Level of Care Code Est Pt Level 1 (17475) Diagnoses Type 2 diabetes, diet controlled E11.9
== END 2024-06-27 13:24 | disposition home or self-care (01) ==
PROVIDERS: PCP Physician Assistant; Visit Provider Registered Nurse Diabetes Educator
DX: E11.9 Type 2 diabetes mellitus without complications (principal)

== ENCOUNTER → 2024-06-27 12:21 | Outpatient (BNVA) | payer OTHER, SELFPAY | PROVIDERS: PCP Physician Assistant; Visit Provider Registered Nurse Diabetes Educator | DX: E11.9 Type 2 diabetes mellitus without complications (principal) | CPT/HCPCS: 99211 ==

== ENCOUNTER 2024-07-04 08:22 | Outpatient (REF) | payer OTHER, SELFPAY | END 2024-07-04 08:23 | disposition home or self-care (01) | LOC: HO.MAMMO 08:22 | PROVIDERS: PCP Physician Assistant; Visit Provider Physician Assistant | DX: Z12.31 Encounter for screening mammogram for malignant neoplasm of breast (principal) | CPT/HCPCS: 77063; 77067 ==

== ENCOUNTER → 2024-07-04 09:19 | Outpatient (BNV) | payer OTHER, SELFPAY | PROVIDERS: PCP Physician Assistant; Visit Provider Internal Medicine | DX: G47.33 Obstructive sleep apnea (adult) (pediatric) (principal) | CPT/HCPCS: 99499 ==

== ENCOUNTER → 2024-07-04 09:45 | Outpatient (BNV) | payer OTHER, SELFPAY | PROVIDERS: PCP Physician Assistant; Visit Provider Internal Medicine | DX: Z12.31 Encounter for screening mammogram for malignant neoplasm of breast (principal) | CPT/HCPCS: 77063; 77067 ==

== ENCOUNTER 2024-07-11 14:26 | Outpatient (AMB) | payer OTHER, SELFPAY ==
--- NOTE | 2024-07-11 14:57 | MHC.AMDMED ---
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 Accompanied by: Self / Same As Patient Allergies Penicillins [PCN] Allergy (Verified 06/13/24 12:01) Unknown Sulfa (Sulfonamide Antibiotics) Allergy (Verified 06/13/24 12:01) Anaphylaxis sulfamethoxazole [From Bactrim] Allergy (Verified 06/13/24 12:01) Anaphylaxis trimethoprim [From Bactrim] Allergy (Verified 06/13/24 12:01) Anaphylaxis HPI Comprehensive Diabetes Asmnt Most Recent Diabetes Results: Cholesterol 193 mg/dL (<200) 05/05/24 HDL Cholesterol 37 mg/dL (>40) L 05/05/24 Triglycerides 188 mg/dL (<150) H 05/05/24 Creatinine 0.84 mg/dL (0.5-1.4) 05/05/24 Blood Urea Nitrogen 17 mg/dL (9-16) H 05/05/24 Sodium 138 mmol/L (135-145) 05/05/24 Potassium 4.3 mmol/L (3.3-5.1) 05/05/24 Chloride 102 mmol/L (96-108) 05/05/24 Carbon Dioxide 29 mmol/L (22-29) 05/05/24 Calcium 9.5 mg/dL (8.4-10.2) 05/05/24 AST 20 U/L (5-31) 05/05/24 ALT 21 U/L (0-31) 05/05/24 Total Protein 7.5 g/dL (6.5-8.0) 05/05/24 Albumin 4.3 g/dL (3.5-5.0) 05/05/24 [facility] Surgical History History of back surgery H/O section Family History Maternal Grandfather No problems noted. 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 2= needs review? 3= comprehend keep point? 4= demonstrates understanding/ competent? NC= Not Covered Topics Learning Objective: Initial visit Initial or post srvc Initial or post srvc Initial or post srvc Initial or post srvc Initial or post srvc Post srvc Comments Pre Edu-assessment/plan Outcome or reassess Outcome or reassess Outcome or reassess Outcome or reassess Outcome or reassess Outcome or reassess Diabetes pathophysiology 1 3 Healthy eating 1 3 Being active 1 3 Taking medication 1 Monitoring glucose 1 3 Acute complication Chronic complicated Lifestyle and healthy coping 1 3 Diabetes distress in support 1 ?Diabetes pathophysiology: ?Defined diabetes med identify own type of diabetes; list 3 options for treating diabetes Healthy eating: ?Described effect of type, amount and ?timing of food on blood glucose; list 3 methods for planning meal Being active: ?State effect of exercise on blood glucose level Taking medication: ?State effect of diabetes medications on diabetes; name diabetes medications taking, action and side effects Monitoring glucose: ?Identify recommended blood glucose targets and personal target Acute complication: ?List symptoms and treatment of hyper and hypoglycemia, DKA, sick day guidelines and guidelines for severe weather or situations of crisis and diabetes supply manage Chronic complication: ?To find the relationship of blood glucose levels to long-term complications of diabetes in screening and preventative measures Lifestyle and healthy coping: ?Described lifestyle and healthy coping strategies to rule out diabetes self-management Diabetes to stress and support: ?Recognize Diabetes to stress and be able to identified support options Learning objectives: Learning objectives: The patient was provided with verbal and written education on the following topics as outlined below. The patient met all learning objectives and was able to verbalize understanding and provide teach back of education topics discussed . The patient was provided with the opportunity to ask questions and all questions were answered. What is Diabetes? Pathophysiology How the body produces and uses insulin Identify type of DM Risk factors Signs of Diabetes Brief overview of Diabetes Management Monitoring blood sugar Following a meal plan Regular exercise Maintaining a healthy weight Taking medication as needed Members of the care team (PCP, RN, MA, RD, CDE, gardening supervisor) Blood glucose monitoring When/how often to test Target blood sugar ranges, patient did not bring meter to today's Patient will wear Dexcom G7 sensor sample CGM Info Instructed Pt on what CGM can and can't do CGM Can: Give Pt minute by minute reading of glucose levels Displays glucose trend arrows that represents the direction glucose levels are fluctuating Give insight on decisions about how to dose insulin CGM cannot: Improve glucose control on its own Completely eliminate the need for all finger sticks Make dosing decision for you CGM is the reading of glucose in the interstitial fluid not actual blood glucose, finger sticks are still necessary when Pt's symptom?s do not match sensor reading and if sensors prompts Pt to do a fingerstick Reviewed delay of CGM from fingersticks Reminded pt that if symptoms do not match sensor still needs to check fingersticks. Introduction to Nutrition Importance of healthy diet in managing DM Diet is personalized to individual preference Review patient?s regular diet/food preferences Who prepares meals/does food shopping/ Dining out?/ Barriers? How diet effects glucose Eating 3 balanced meals a day with small, healthy snacks between meals Review food groups Carbohydrates: What is a carbohydrate/Which food/food groups are considered carbohydrates Effect of carbohydrates on blood glucose Portion sizes Reading food labels Basic carb counting (if applicable per nursing assessment) Plate method Meal planning Recommendations: Follow plate method, consistent carbs and read nutritional labels. Smart Goal: Patient will identify foods and current meal plan that contains carbohydrate Educational Materials: The patient was provided with the following written educational materials: Planning Healthy Meals Handout Patient Response to instructions: Comprehension of Instructions: Fair Readiness to make changes: Contemplation How confident they feel about making changes: Positive Portions of this note were created using voice recognition software, please excuse any words or phrases that may have been misinterpreted. Patient Instructions: Patient instruction: CGM provides information on blood glucose control throughout the day, including hyperglycemia and hypoglycemia. ? Continue to monitor blood glucose as instructed. Follow nutrition guidelines provided. Report any discomfort promptly to health care provider. ?Stay well-hydrated. You can bathe ,shower, swim and exerce while wearing the glucose sensor. Do not submerge glucose sensor in water for more than 30 minutes. Remove sensor for MRI or CAT scan. Avoid Xray machine in airports - remove sensor or request wand Coding Level of Care Code Est Pt Level 1 (71285) Diagnoses Type 2 diabetes, diet controlled E11.9
== END 2024-07-11 15:35 | disposition home or self-care (01) ==
PROVIDERS: PCP Physician Assistant; Visit Provider Registered Nurse Diabetes Educator
DX: E11.9 Type 2 diabetes mellitus without complications (principal)

== ENCOUNTER → 2024-07-11 14:26 | Outpatient (BNVA) | payer OTHER, SELFPAY | PROVIDERS: PCP Physician Assistant; Visit Provider Registered Nurse Diabetes Educator | DX: E11.9 Type 2 diabetes mellitus without complications (principal) | CPT/HCPCS: 99211 ==

== ENCOUNTER 2024-07-14 13:40 | Outpatient (AMB) | payer OTHER, SELFPAY ==
--- NOTE | 2024-07-14 13:49 | MHC.PC.OV ---
Vital Signs 07/14/24 13:55 Height 5 ft 6 in Weight 268 lb BMI 43.3 BP 126/82 Blood Pressure Location Lt brachial Position Sitting Respiration 16 Pulse 66 Pulse Source Pulse Oximeter Pulse Oximetry (%) 99 Oxygen Delivery Method Room Air Intake Visit Reasons: DM Follow UP Intake Note: Diabetes follow up Cook Fish And Chips Required: No Allergies Penicillins [PCN] Allergy (Verified 07/14/24 13:51) Unknown Sulfa (Sulfonamide Antibiotics) Allergy (Verified 07/14/24 13:51) Anaphylaxis sulfamethoxazole [From Bactrim] Allergy (Verified 07/14/24 13:51) Anaphylaxis trimethoprim [From Bactrim] Allergy (Verified 07/14/24 13:51) Anaphylaxis Medication List - Last Reconciled 07/14/24 by Wandy Quezada PA-C acetaminophen (Tylenol Extra Strength) 500 mg PO Q6H PRN [apple cider vinegar .RouteGoli brand] [ashwagandha .Routegoli brand] blood sugar diagnostic (FreeStyle Lite Strips) Use daily As directed to check blood glucose blood-glucose meter (FreeStyle Lite Meter kit) Use daily As directed to check blood sugars celecoxib (Celebrex) 200 mg PO BID 30 days dulaglutide (Trulicity) 0.75 mg (0.5 mL) subcut QWEEK ferrous sulfate (FeroSul) 325 mg PO DAILY ibuprofen 200 mg PO Q6H PRN lancets (FreeStyle Lancets) use daily as directed to check blood glucose magnesium citrate,mag oxide mg PO Tobacco use date assessed: 07/14/24 Dental Screening Dental Screen Date: 06/08/24 HPI DM Follow UP HPI Details Patient is a 54-year-old female who presents today for a follow up. She is relatively new here. She has a significant past medical history of iron-deficiency anemia, likely secondary to menorrhagia, uterine fibroids, obesity, chronic low back pain with previous surgery in 2013, alcohol abuse, binge eating and elevated blood pressure readings. Pulm: Recently sleep study was performed and did come back with moderate to severe sleep apnea. She was referred to sleep Medicine. CV: Blood pressure today in the office is 126/82. She was referred for a sleep study at our last visit for suspected sleep apnea and is booked on 07/04. Endo: a1c 6.7. She was started on Trulicity 0.75 mg weekly. She states that she has not yet picked it up. Since our last visit I did send in testing supplies and she has been checking her blood sugars and states that the highest she has had has 134 fasting. She denies any polyuria or polydipsia. Since our last visit she states that she has worked hard on her diet. She has lost about 10 lb. Psych: Last drink was 06/04/24. No withdrawal sx with d/c drinking. She states she feels like she drinks too much when she drinks. She will goes days without drinking. She says that she started heavily drinking at the age of 30. 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 She states that she has significantly cut down to now drinking a pt of Eric instead of a handle. She does not feel like she needs help with this. She is not interested in seeing a therapist. She did recently moved to this area from [facility] to be with family and to get a break from her younger brothers who are dependent on her at times. Musculoskeletal: Right and Left knee pain x 1-2 years. She is following with Orthopedics. 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 Former smoker- smoked for 10 years on and off socially with drinking (never a half pack per day). quit in 2015. Father had prostate ca. [facility] Surgical History History of back surgery H/O section Family History Maternal Grandfather No problems noted. 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 Current occupational exposures/hazards: No Cognitive needs: No Hearing needs: No Vision needs: No Questionnaire Thrive Questionnaire Date Thrive assessed: 06/01/24 I am a: Patient What is your living situation today?: I have a steady place to live Within the past 12 months, did the food you bought not last and you didn't have the money to get more?: Never true Within the past 12 months, did you worry whether your food would run out before you got money to buy more?: Never true Do you have trouble paying for medicines?: No Do you have trouble getting transportation to medical appointments?: No Do you have trouble paying your heating and electricity bill?: No Do you have trouble taking care of your child, family member or friend?: No Do you have trouble with day-to-day activities such as bathing, preparing meals, shopping, managing finances, etc.?: No Are you currently unemployed and looking for a job?: No Are you interested in more education?: No Please select the resources that you would like help with: None Currently or been in a relationship where the following occur: No concerns reported THRIVE Score: 0 FILI-7 AMB Questionnaire FILI-7 Date FILI - 7 assessed: 05/05/24 Source: Developed by Drs. Morales Aguilar, Kaykay Gu, Daren Rick and colleagues, with an educational adryan from [employer]. Physical exam (Primary Care) Vital Signs: Last Vital Signs Pulse 66 07/14/24 13:55 Resp 16 07/14/24 13:55 BP 126/82 07/14/24 13:55 Pulse Ox 99 07/14/24 13:55 Oxygen Delivery Method Room Air 07/14/24 13:55 BMI result Body Mass Index 43.3 Tobacco/Smoking Status: Tobacco use Status Tobacco use date assessed 07/14/24 07/14/24 13:57 Patient Tobacco Use Status Former Tobacco user 07/14/24 13:49 e-Cigarette/Vaping Use Former Use 07/14/24 13:49 Thrive Assessment: Date of Thrive Assessment Date Thrive assessed 06/01/24 07/14/24 13:49 Currently or been in a relationship where the following occur: No concerns reported Const Orientation/consciousness: patient oriented x3 HENMT Ears: hearing grossly normal bilaterally Neck Thyroid: Thyroid normal Lymphatic: no lymphadenopathy noted Resp Auscultation: clear to auscultation bilaterally Cardio Rate: regular rate Rhythm: regular rhythm Heart sounds: S1 normal heart sound present and S2 normal heart sound present GI Inspection: Yes normal to inspection Palpation (GI): Soft to palpation and Other GI palpation findings present (nontender, no cva tenderness) Auscultation: normoactive bowel sounds Rectal Exam - Female: deferred Skin General skin exam: no rashes or lesions noted Neuro General: patient oriented x3, gait normal and no focal motor deficits Results AMB Hemoglobin A1c AMB Hemoglobin A1c 6.4 % Last Edit by Gaby Howard CMA on 07/14/24 14:13 Results Reviewed Results Reviewed: Laboratory Tests 05/05/24 10:04 Sodium 138 Potassium 4.3 Chloride 102 Carbon Dioxide 29 Anion Gap 11 L BUN 17 H Creatinine 0.84 Estimated GFR > 60 Fasting Glucose 127 H Estimat Average Glucose 146 Hemoglobin A1c % 6.7 H Triglycerides 188 H Cholesterol 193 LDL Cholesterol, Calc 119 H HDL Cholesterol 37 L TSH 2.11 Coding Level of Care Code Tele Est Pt Level 4 (79436) Complex EM visit Add On G2211 Diagnoses Severe obstructive sleep apnea G47.33 Severe obesity (BMI >= 40) E66.01 Type 2 diabetes mellitus associated with morbid obesity E11.69; E66.01 Assessment & Plan Assessment & Plan (1) Severe obstructive sleep apnea: Code(s): G47.33 - Obstructive sleep apnea (adult) (pediatric) Category: Medical Plan: Referral to sleep Medicine (2) Severe obesity (BMI >= 40): Code(s): E66.01 - Morbid (severe) obesity due to excess calories Category: Medical Plan: Congratulated her on weight loss. Encouraged her to continue with the current dietary and lifestyle modifications. (3) Type 2 diabetes mellitus associated with morbid obesity: Code(s): E11.69 - Type 2 diabetes mellitus with other specified complication; E66.01 - Morbid (severe) obesity due to excess calories Category: Medical Plan: Currently wearing a Dexcom G7 that was provided to her through the endocrinology department for a trial. Her glucose is 97% in range because she can monitor exactly what she is eating. Orders: Orders Hemoglobin A1c Today E11.69 - Type 2 diabetes mellitus with other specified complication, E66.01 - Morbid (severe) obesity due to excess calories, G47.33 - Obstructive sleep apnea (adult) (pediatric), R73.01 - Impaired fasting glucose AMB Hemoglobin A1c Today E11.69 - Type 2 diabetes mellitus with other specified complication, E66.01 - Morbid (severe) obesity due to excess calories Comprehensive Met. Panel Today E11.69 - Type 2 diabetes mellitus with other specified complication, E66.01 - Morbid (severe) obesity due to excess calories, G47.33 - Obstructive sleep apnea (adult) (pediatric) TSH reflex Free T4 Today E11.69 - Type 2 diabetes mellitus with other specified complication, E66.01 - Morbid (severe) obesity due to excess calories, G47.33 - Obstructive sleep apnea (adult) (pediatric) Medications: Refilled dulaglutide (Trulicity) 0.75 mg (0.5 mL) subcut QWEEK 2 mL 2RF
[2024-07-14 13:55] VITALS: BP 126/82; PULSE 66; RESP 16; O2SAT 99; BMI 43.3
== END 2024-07-14 14:19 | disposition home or self-care (01) ==
PROVIDERS: PCP Physician Assistant; Visit Provider Physician Assistant
DX: G47.33 Obstructive sleep apnea (adult) (pediatric) (principal); E11.69 Type 2 diabetes mellitus with other specified complication; E66.01 Morbid (severe) obesity due to excess calories; Z68.41 Body mass index [BMI] 40.0-44.9, adult

== ENCOUNTER → 2024-07-14 13:40 | Outpatient (BNVA) | payer OTHER, SELFPAY | PROVIDERS: PCP Physician Assistant; Visit Provider Physician Assistant | DX: E11.69 Type 2 diabetes mellitus with other specified complication (principal); E66.01 Morbid (severe) obesity due to excess calories; G47.33 Obstructive sleep apnea (adult) (pediatric) | CPT/HCPCS: 83036 ==

== ENCOUNTER 2024-07-25 08:54 | Outpatient (AMB) | payer OTHER, SELFPAY ==
--- NOTE | 2024-07-25 09:42 | A.OFFVIS_ITS ---
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 Foundations Associate Required: No Accompanied by: Self / Same As Patient Allergies Penicillins [PCN] Allergy (Verified 07/14/24 13:51) Unknown Sulfa (Sulfonamide Antibiotics) Allergy (Verified 07/14/24 13:51) Anaphylaxis sulfamethoxazole [From Bactrim] Allergy (Verified 07/14/24 13:51) Anaphylaxis trimethoprim [From Bactrim] Allergy (Verified 07/14/24 13:51) Anaphylaxis HPI Comprehensive Diabetes Asmnt Most Recent Diabetes Results: Cholesterol 193 mg/dL (<200) 05/05/24 HDL Cholesterol 37 mg/dL (>40) L 05/05/24 Triglycerides 188 mg/dL (<150) H 05/05/24 Creatinine 0.84 mg/dL (0.5-1.4) 05/05/24 Blood Urea Nitrogen 17 mg/dL (9-16) H 05/05/24 Sodium 138 mmol/L (135-145) 05/05/24 Potassium 4.3 mmol/L (3.3-5.1) 05/05/24 Chloride 102 mmol/L (96-108) 05/05/24 Carbon Dioxide 29 mmol/L (22-29) 05/05/24 Calcium 9.5 mg/dL (8.4-10.2) 05/05/24 AST 20 U/L (5-31) 05/05/24 ALT 21 U/L (0-31) 05/05/24 Total Protein 7.5 g/dL (6.5-8.0) 05/05/24 Albumin 4.3 g/dL (3.5-5.0) 05/05/24 [facility] Surgical History History of back surgery H/O section Family History Maternal Grandfather No problems noted. 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 2= needs review? 3= comprehend keep point? 4= demonstrates understanding/ competent? NC= Not Covered Topics Learning Objective: Initial visit Initial or post srvc Initial or post srvc Initial or post srvc Initial or post srvc Initial or post srvc Post srvc Comments Pre Edu-assessment/plan Outcome or reassess Outcome or reassess Outcome or reassess Outcome or reassess Outcome or reassess Outcome or reassess Diabetes pathophysiology 1 3 Healthy eating 1 3 Being active 1 3 Taking medication 1 Monitoring glucose 1 3 Acute complication 1 Chronic complicated 1 Lifestyle and healthy coping 1 3 Diabetes distress in support 1 3 ?Diabetes pathophysiology: ?Defined diabetes med identify own type of diabetes; list 3 options for treating diabetes Healthy eating: ?Described effect of type, amount and ?timing of food on blood glucose; list 3 methods for planning meal Being active: ?State effect of exercise on blood glucose level Taking medication: ?State effect of diabetes medications on diabetes; name diabetes medications taking, action and side effects Monitoring glucose: ?Identify recommended blood glucose targets and personal target Acute complication: ?List symptoms and treatment of hyper and hypoglycemia, DKA, sick day guidelines and guidelines for severe weather or situations of crisis and diabetes supply manage Chronic complication: ?To find the relationship of blood glucose levels to long- term complications of diabetes in screening and preventative measures Lifestyle and healthy coping: ?Described lifestyle and healthy coping strategies to rule out diabetes self-management Diabetes to stress and support: ?Recognize Diabetes to stress and be able to identified support options Learning objectives: The patient was provided with verbal and written education on the following topics as outlined below. The patient met all learning objectives and was able to verbalize understanding and provide teach back of education topics discussed . The patient was provided with the opportunity to ask questions and all questions were answered. Patient Assessment Assess patient education level/literacy/barriers Patient questions/concerns Exercise Medical clearance Effect of exercise on blood sugar Start slowly and gradually increase pace/duration over time Goal amount of exercise Checking blood glucose/have a source of carbs with you Diabetes Complications: ?Nephropathy :Kidney Disease ?diabetes can damage the kidneys, which is not only can cause them to fail but can make them lose their ability to filter waste from the blood? ?Retinopathy: Eye complications ?Retinopathy? is the commonest long-term complication of diabetes. It is leading cause of blindness Besides, Retinopathy- People with diabetes? are also prone to cataract and Glaucoma. ?Neuropathy: Nerve damage -It involves temporary or permanent damage to nerve tissue. Nerve tissue gets injured mainly due to decreased blood flow and rise in blood glucose levels. This damage can lead to pain , or loss of sensation it can also include sexual dysfunction in both men and women ? Infections poor healing: People with diabetes? have increased susceptibility to various infections, such as? pneumonias, pyelonephritis, carbuncles and diabetic ulcers. This may be due to poor blood supply, reduced cellular immunity or hyperglycemia. ?Heart Disease And Stroke: People with diabetes are four times more prone to develop Heart disease than those who do not have diabetes ?Depression: Feeling down once in awhile is normal, but some people feel sadness that just won't go away. Life for them seems hopeless. Feeling this way most of the day for two weeks or more is a sign of serious depression ?Gum Disease: People get gum disease when plaque destroys the gums and bone around the teeth. People with diabetes can get gum disease from having high blood glucose levels for a long time Lifestyle * Work * Travel * Stress management * Problem solving Know your goals * A1C * Blood sugar targets * Blood pressure * Cholesterol/LDL Urine microalbumin Smart Goal Assessment: Pt met goal 100% Pt met goal 75% Pt met goal 50% Pt met goal 25% Pt met goal less than 25% New Goal:? Educational Materials: The patient was provided with the following written educational materials: ADCES 7 Healthy Behaviors Reducing Risks handout Patient Response to instructions: Comprehension of Instructions: Readiness to make changes: a How confident they feel about making changes: Letter of completion of diabetes Education program will be sent to referring provider Portions of this note were created using voice recognition software, please excuse any words or phrases that may have been misinterpreted. Include regular daily activity. ADA recommends 30 minutes of exercise 5 days a week. Weight loss talk to PCP or Commodity Analyst before starting new plan. Test blood sugar as directed; Fasting and 2hpp largest meal. Watch trends in results. Utilize results and to assess how food, physical activity and medications affect blood sugar results. Bring glucometer or CGM to next visit. Be knowledgeable about diabetes medication, its action, side effects, efficacy, toxicity, prescribed dosage, appropriate timing and frequency of administration, effect of missed and delayed doses and instructions for storage, travel and safety. Problem solving techniques to monitor hypo/hyperglycemia episodes and treatments. Reduce risk reduction behaviors, smoking cessation, regular eye, foot and dental examinations. (2) Type 2 diabetes, diet controlled: Code(s): E11.9 - Type 2 diabetes mellitus without complications Plan: Diabetes self-management education and support participation record Assessment/scale: 1= needs instructed? 2= needs review? 3= comprehend keep point? 4= demonstrates understanding/ competent? NC= Not Covered Topics Learning Objective: Initial visit Initial or post srvc Initial or post srvc Initial or post srvc Initial or post srvc Initial or post srvc Post srvc Comments Pre Edu-assessment/plan Outcome or reassess Outcome or reassess Outcome or reassess Outcome or reassess Outcome or reassess Outcome or reassess Diabetes pathophysiology 1 3 Healthy eating 1 3 Being active 1 3 Taking medication 1 Monitoring glucose 1 3 B Acute complication 1 Chronic complicated 1 Lifestyle and healthy coping 1 3 Diabetes distress in support 1 3 ?Diabetes pathophysiology: ?Defined diabetes med identify own type of diabetes; list 3 options for treating diabetes Healthy eating: ?Described effect of type, amount and ?timing of food on blood glucose; list 3 methods for planning meal Being active: ?State effect of exercise on blood glucose level Taking medication: ?State effect of diabetes medications on diabetes; name diabetes medications taking, action and side effects Monitoring glucose: ?Identify recommended blood glucose targets and personal target Acute complication: ?List symptoms and treatment of hyper and hypoglycemia, DKA, sick day guidelines and guidelines for severe weather or situations of crisis and diabetes supply manage Chronic complication: ?To find the relationship of blood glucose levels to long-term complications of diabetes in screening and preventative measures Lifestyle and healthy coping: ?Described lifestyle and healthy coping strategies to rule out diabetes self-management Diabetes to stress and support: ?Recognize Diabetes to stress and be able to identified support options Learning objectives: The patient was provided with verbal and written education on the following topics as outlined below. The patient met all learning objectives and was able to verbalize understanding and provide teach back of education topics discussed . The patient was provided with the opportunity to ask questions and all questions were answered, Patient Assessment Assess patient education level/literacy/barriers, patient's last A1c to [id number] 6.4% Patient was sample Dexcom G7 sensor for 10 days Patient's average glucose for 10 days 129 mg/dL Patient above target 3% At target 97% Below target 0% Patient has not started Trulicity 0.75 mg Exercise Medical clearance Effect of exercise on blood sugar Start slowly and gradually increase pace/duration over time Goal amount of exercise Checking blood glucose/have a source of carbs with you Diabetes Complications: ?Nephropathy :Kidney Disease ?diabetes can damage the kidneys, which is not only can cause them to fail but can make them lose their ability to filter waste from the blood? ?Retinopathy: Eye complications ?Retinopathy? is the commonest long-term complication of diabetes. It is leading cause of blindness Besides, Retinopathy- People with diabetes? are also prone to cataract and Glaucoma. ?Neuropathy: Nerve damage -It involves temporary or permanent damage to nerve tissue. Nerve tissue gets injured mainly due to decreased blood flow and rise in blood glucose levels. This damage can lead to pain , or loss of sensation it can also include sexual dysfunction in both men and women ? Infections poor healing: People with diabetes? have increased susceptibility to various infections, such as? pneumonias, pyelonephritis, carbuncles and diabetic ulcers. This may be due to poor blood supply, reduced cellular immunity or hyperglycemia. ?Heart Disease And Stroke: People with diabetes are four times more prone to develop Heart disease than those who do not have diabetes ?Depression: Feeling down once in awhile is normal, but some people feel sadness that just won't go away. Life for them seems hopeless. Feeling this way most of the day for two weeks or more is a sign of serious depression ?Gum Disease: People get gum disease when plaque destroys the gums and bone around the teeth. People with diabetes can get gum disease from having high blood glucose levels for a long time Lifestyle * Work * Travel * Stress management * Problem solving Know your goals * A1C * Blood sugar targets * Blood pressure * Cholesterol/LDL Urine microalbumin Smart Goal Assessment:Patient will identify foods and current meal plan that contains carbohydrate Pt met goal 100% New Goal:?Pt will use [employer], website for diabetes friendly recipes between now and next visit Educational Materials: The patient was provided with the following written educational materials: ADCES 7 Healthy Behaviors Reducing Risks, general foot care guidelines handouts Patient Response to instructions: Comprehension of Instructions: Good Readiness to make changes: action How confident they feel about making changes: positive Patient will follow-up with inclusion special educator in 4 months Portions of this note were created using voice recognition software, please excuse any words or phrases that may have been misinterpreted. Patient Instructions: Include regular daily activity. ADA recommends 30 minutes of exercise 5 days a week. Weight loss talk to PCP or Commodity Analyst before starting new plan. Test blood sugar as directed; Fasting and 2hpp largest meal. Watch trends in results. Utilize results and to assess how food, physical activity and medications affect blood sugar results. Bring glucometer or CGM to next visit. Be knowledgeable about diabetes medication, its action, side effects, efficacy, toxicity, prescribed dosage, appropriate timing and frequency of administration, effect of missed and delayed doses and instructions for storage, travel and safety. Problem solving techniques to monitor hypo/hyperglycemia episodes and treatments. Reduce risk reduction behaviors, smoking cessation, regular eye, foot and dental examinations. Coding Level of Care Code Est Pt Level 1 (39847) Diagnoses Type 2 diabetes mellitus associated with morbid obesity E11.69; E66.01 Type 2 diabetes, diet controlled E11.9
== END 2024-07-25 09:54 | disposition home or self-care (01) ==
PROVIDERS: PCP Physician Assistant; Visit Provider Registered Nurse Diabetes Educator
DX: E11.69 Type 2 diabetes mellitus with other specified complication (principal); E66.01 Morbid (severe) obesity due to excess calories; E11.9 Type 2 diabetes mellitus without complications

== ENCOUNTER → 2024-07-25 08:54 | Outpatient (BNVA) | payer OTHER, SELFPAY | PROVIDERS: PCP Physician Assistant; Visit Provider Registered Nurse Diabetes Educator | DX: G47.33 Obstructive sleep apnea (adult) (pediatric) (principal); R53.83 Other fatigue; E11.69 Type 2 diabetes mellitus with other specified complication; E66.01 Morbid (severe) obesity due to excess calories; Z68.41 Body mass index [BMI] 40.0-44.9, adult; Z86.69 Personal history of other diseases of the nervous system and sense organs | CPT/HCPCS: 99211 ==

== ENCOUNTER 2024-07-25 12:57 | Outpatient (AMB) | payer OTHER, SELFPAY ==
--- NOTE | 2024-07-25 12:58 | A.OFFVIS_ITS ---
Vital Signs 07/25/24 13:05 Height 5 ft 6 in Weight 268 lb 4 oz BMI 43.3 BP 110/70 Blood Pressure Location Lt brachial Position Sitting Pulse 77 Pulse Source Pulse Oximeter Pulse Oximetry (%) 96 Oxygen Delivery Method Room Air Intake Visit Reasons: I-[address] RO[address] PRODUCTION MANAGER: BREE (LVM+LTR 07/20) Intake Note: Inpatient referral for severe sleep apnea. Division Human Resources Manager Required: No Accompanied by: Self / Same As Patient Allergies Penicillins [PCN] Allergy (Verified 07/25/24 13:05) Unknown Sulfa (Sulfonamide Antibiotics) Allergy (Verified 07/25/24 13:05) Anaphylaxis sulfamethoxazole [From Bactrim] Allergy (Verified 07/25/24 13:05) Anaphylaxis trimethoprim [From Bactrim] Allergy (Verified 07/25/24 13:05) Anaphylaxis HPI Comments Details: 54 year old female is here for a sleep evaluation. She had a sleep study 07/04/2024 which shows moderate sleep apnea AHI was 26 and O2 Vasu to 71% Once she is started on CPAP will correct for Hypoxemia with overnight Oximetry. She goes to bed at 11pm to 1am, gets up at 7am, she has 3-5 awakenings due to knee pain and bathroom visits. She is taking 3 advils daily, refused to take the Celecoxic, she will f/u on Aug 15 for Corticosteroid Injections in bilateral knees. She snores loudly per her , and she gasps for air. She had an accident and had surgical procedure L4/L5 and S1. She c/o RLS, with numbness, tingling in both her legs and keeps her up at night. She does not smoke, and has not had a drink since Jun 04, 2024. She still smokes MJ occasionally. 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 Her mood and diet is good. [facility] Surgical History History of back surgery H/O section Family History Maternal Grandfather No problems noted. 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 Current occupational exposures/hazards: No Cognitive needs: No Hearing needs: No Vision needs: No Review of Systems Const All systems reviewed & are unremarkable except as noted in HPI and below Physical Exam Vital Signs: Last Vital Signs Pulse 77 07/25/24 13:05 BP 110/70 07/25/24 13:05 Pulse Ox 96 07/25/24 13:05 Oxygen Delivery Method Room Air 07/25/24 13:05 BMI result Body Mass Index 43.3 Const General: cooperative, comfortable and no acute distress Nutritional Appearance: obese (BMI is 43 ) Orientation/consciousness: patient oriented x3 HEENT Face and sinus: Yes normal facial exam and Yes face symmetric Throat: Yes other ([place] score of 4) Eyes Pupils: Equal, round and reactive pupils present Neck Neck: Yes full ROM and Yes supple Resp Effort & Inspection: normal respiratory effort and able to speak in complete sentences Neuro General: patient oriented x3 and Unable to assess gait Cranial nerves: Yes Facial sensation intact/muscles of mastication intact, Yes Equal, round and reactive pupils present, Yes Normal accommodation reflex present, Yes Bilaterally intact EOM present, Yes Nystagmus not present, Yes Normal facial strength present, Yes Midline tongue present, Yes Ability to bilaterally rotate head present and Yes Ability to bilaterally elevate shoulders present Gait exam (Neuro): Unable to assess gait and Other gait observations present (difficulty ambulating has knee brace on R. knee and limps) Motor exam (neuro): no tremor noted and Abnormal motor strength present (R LE (Knee) 3/5 ) Deep tendon reflexes (DTR's): Right triceps reflex intensity grade: 2+, Left triceps reflex intensity grade: 2+, Rt Biceps (C5, C6): 2+, Left biceps reflex intensity grade: 2+, Right brachioradialis reflex intensity grade: 2+ and Left brachioradialis reflex intensity grade: 2+ Psych Thought process: Normal thought process present Thought content: Normal thought content present Results Reviewed Results Reviewed: HST Jul 04, 2024 Moderate sleep apnea AHI was 26 and O2 Vasu to 71%, start CPAP [id number] Once she is started on CPAP will correct for Hypoxemia with overnight Oximetry. Assessment & Plan Assessment & Plan (1) Fatigue due to sleep pattern disturbance: Code(s): R53.83 - Other fatigue; G47.9 - Sleep disorder, unspecified Category: Medical (2) Restless leg syndrome in : Code(s): O99.350 - Diseases of the nervous system complicating , unspecified trimester; G25.81 - Restless legs syndrome Category: Medical (3) Severe obstructive sleep apnea: Code(s): G47.33 - Obstructive sleep apnea (adult) (pediatric) Category: Medical (4) Severe obesity (BMI >= 40): Code(s): E66.01 - Morbid (severe) obesity due to excess calories Category: Medical Plan snoring start CPAP [id number] RLS Gabapentin 100-200mg PO daily at bedtime Magnesium 400mg PO daily at bedtime B6 250mg PO daily at bedtime F/U in 3 months Medications: New pyridoxine (vitamin B6) take one tablet a night daily 250 mg PO DAILY 90 tabs 1RF 90 days G47.9 - Sleep disorder, unspecified, R53.83 - Other fatigue gabapentin take 200mg PO at night daily for RLS 100 mg PO BEDTIME 90 caps 0RF Restless Leg Syndrome 90 days MDD 200mg PO daily G25.81 - Restless legs syndrome, O99.350 - Diseases of the nervous system complicating , unspecified trimester Patient Instructions: BREE CPAP compliance is emphasized as patient's AHI was 26 and O2 Vasu to 71% Sleep Hygiene Provided sleep in a dark and cool environment with no devices in bed. Limit water intake 2 hours prior to bedtime. BMI is elevated will discuss weight loss at next f/u. Monitor A1c. Coding Level of Care Code New Pt Level 4 (73331) Diagnoses Fatigue due to sleep pattern disturbance R53.83; G47.9 Restless leg syndrome in O99.350; G25.81 Severe obstructive sleep apnea G47.33 Severe obesity (BMI >= 40) E66.01 Time Spent (min) 30 Comment Baseline Evaluation Sleep Questionnaire Difficulty falling asleep: Yes Difficulty staying asleep?: Yes Number of arousals: 2 Snoring: Yes Witnessed apneas: No Gasping arousals: No Nocturia: Yes GERD: No Vivid dreams: Yes Acting out dreams: Yes Abnormal behavior in sleep: Yes Abnormal movements in sleep: Yes Morning headaches: No Excessive daytime sleepiness: No Daytime naps: No Restless legs: Yes Hallucinations: No Sleep paralysis: Yes Drop attacks: No Sleep Study: No CPAP: No
[2024-07-25 13:05] VITALS: BP 110/70; PULSE 77; O2SAT 96; BMI 43.3
== END 2024-07-25 13:51 | disposition home or self-care (01) ==
PROVIDERS: PCP Physician Assistant; Visit Provider Physician Assistant Medical
DX: R53.83 Other fatigue (principal); G47.9 Sleep disorder, unspecified; O99.350 Diseases of the nervous system complicating pregnancy, unspecified trimester; G25.81 Restless legs syndrome; G47.33 Obstructive sleep apnea (adult) (pediatric); E66.01 Morbid (severe) obesity due to excess calories
CPT/HCPCS: 99204

== ENCOUNTER 2024-08-12 14:34 | Outpatient (AMB) | payer OTHER, SELFPAY ==
[2024-08-12 14:39] VITALS: BMI 41.6
--- NOTE | 2024-08-12 14:39 | A.OFFVIS_ITS ---
Vital Signs 08/12/24 14:39 Height 5 ft 6 in Weight 258 lb BMI 41.6 Intake Visit Reasons: Inj-Bilat knee steroid inj Intake Note: Dia 54 yr old female presents today for bilateral knee injection. States she started taking gabapentin. Allergies Penicillins [PCN] Allergy (Verified 08/12/24 14:40) Unknown Sulfa (Sulfonamide Antibiotics) Allergy (Verified 08/12/24 14:40) Anaphylaxis sulfamethoxazole [From Bactrim] Allergy (Verified 08/12/24 14:40) Anaphylaxis trimethoprim [From Bactrim] Allergy (Verified 08/12/24 14:40) Anaphylaxis HPI HPI Inj-Bilat knee steroid inj: Details: 54-year-old female presents to the office today for bilateral knee injection. She was previously taking Celebrex of was helpful however when she stopped her pain did return. Her primary care doctor did place her on gabapentin which does help her sleep at night. [facility] Surgical History History of back surgery H/O section Family History Maternal Grandfather No problems noted. 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 Lateral retropatellar tenderness. ROM full with crepitus. Negative steinmans. No ligamentous laxity. NVI. Right knee skin intact, no erythema or joint effusion. Tenderness along the medial joint line. ROM full with crepitus. Negative steinmans. No ligamentous laxity. NVI. Office Procedures AMB Joint Injection/Aspiration Joint Injection/Aspiration Primary Site: right knee Secondary Site: left knee Prep: site was prepped using aseptic technique, ethochloride spray was applied and injection warnings given Injected: 40 mg of, DepoMedrol, with 8 mL of, 1% plain lidocaine and in the joint Approach Used: anterolateral Procedure: The patient tolerated the procedure well and there was some relief with the local anesthesia Coding 18764 - Glenohumeral/Tronchanteric Bursa/Intraarticular Procedure code (CPT) selection complete Assessment & Plan Assessment & Plan (1) Osteoarthritis of knees, bilateral: Code(s): M17.0 - Bilateral primary osteoarthritis of knee Category: Medical Plan: We discussed options today, which include steroid injection. The patient did consent to move forward with the injection, which was tolerated well.? I recommended rest, ice and elevation and OTC antiinflammatories prn for discomfort. If symptoms persist over the next 6-8 weeks, they will contact our office, otherwise, prn Coding Level of Care Code Est Pt Level 3 (08691) Complex EM visit Add On G2211 Diagnoses Osteoarthritis of knees, bilateral M17.0 CPT Codes Coding - Joint 7: 64631 - Glenohumeral/Tronchanteric Bursa/Intraarticular ([id number])
== END 2024-08-12 15:00 | disposition home or self-care (01) ==
LOC: HO.HOS 14:35
PROVIDERS: PCP Physician Assistant; Visit Provider Physician Assistant
DX: M17.0 Bilateral primary osteoarthritis of knee (principal)
CPT/HCPCS: 20610; 99213

== ENCOUNTER → 2024-08-12 14:34 | Outpatient (BNVA) | payer OTHER, SELFPAY | PROVIDERS: PCP Physician Assistant; Visit Provider Physician Assistant | DX: M17.0 Bilateral primary osteoarthritis of knee (principal) | CPT/HCPCS: 20610; J1010; J2003 ==

== ENCOUNTER 2024-10-20 14:43 | Outpatient (AMB) | payer OTHER, SELFPAY ==
--- NOTE | 2024-10-20 14:50 | MHC.PC.OV ---
Vital Signs 10/20/24 14:54 Height 5 ft 6 in Weight 243 lb 6 oz BMI 39.3 BP 118/70 Blood Pressure Location Lt brachial Position Sitting Respiration 14 Pulse 68 Pulse Source Pulse Oximeter Pulse Oximetry (%) 99 Oxygen Delivery Method Room Air Intake Visit Reasons: dm Intake Note: Follow up diabetes Collar Folder Operator Required: No Allergies Penicillins [PCN] Allergy (Verified 10/20/24 14:50) Unknown Sulfa (Sulfonamide Antibiotics) Allergy (Verified 10/20/24 14:50) Anaphylaxis sulfamethoxazole [From Bactrim] Allergy (Verified 10/20/24 14:50) Anaphylaxis trimethoprim [From Bactrim] Allergy (Verified 10/20/24 14:50) Anaphylaxis Medication List - Last Reconciled 10/20/24 by Wandy Quezada PA-C acetaminophen (Tylenol Extra Strength) 500 mg PO Q6H PRN blood sugar diagnostic (FreeStyle Lite Strips) Use daily As directed to check blood glucose blood-glucose meter (FreeStyle Lite Meter kit) Use daily As directed to check blood sugars celecoxib mg PO BID ferrous sulfate (FeroSul) 325 mg PO DAILY gabapentin 200 mg (2 x 100 mg) PO BID 90 days MDD 200mg PO daily [Paula Ashwaganda PO] lancets (FreeStyle Lancets) use daily as directed to check blood glucose magnesium citrate,mag oxide 500 mg PO DAILY pyridoxine (vitamin B6) 250 mg PO DAILY 90 days Tobacco use date assessed: 10/20/24 Dental Screening Dental Screen Date: 10/20/24 Did you have a dental visit in the last 12 months?: No Did you have a dental problem in the last 6 months where you did not have access to dental care?: No Was dental information given to patient?: Patient declined HPI dm HPI Details Patient is a 54-year-old female who presents today for a follow up. She is relatively new here. She has a significant past medical history of iron-deficiency anemia, likely secondary to menorrhagia, uterine fibroids, obesity, chronic low back pain with previous surgery in 2013, alcohol abuse, binge eating and elevated blood pressure readings. Pulm: Recently sleep study was performed and did come back with moderate to severe sleep apnea. She was referred to sleep Medicine. States she never got the cpap. She is calling them. CV: Blood pressure today in the office is 118/70. Endo: a1c 6.0. She was started on Trulicity 0.75 mg weekly. She is tolerating well. Since our last visit I did send in testing supplies and she has been checking her blood sugars and states they are less than 120. She denies any polyuria or polydipsia. Since our last visit she states that she has worked hard on her diet. She has lost about 35 lbs since initially coming here. -never tried metformin, doing well with trulicity. Psych: Last drink was 06/04/24. No withdrawal sx with d/c drinking. Musculoskeletal: Right and Left knee pain x 1-2 years. She is following with Orthopedics. States it is signficantly improved. 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 Former smoker- smoked for 10 years on and off socially with drinking (never a half pack per day). quit in 2015. Father had prostate ca. [facility] Surgical History History of back surgery H/O section Family History Maternal Grandfather No problems noted. 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 Current occupational exposures/hazards: No Cognitive needs: No Hearing needs: No Vision needs: No Questionnaire Thrive Questionnaire Date Thrive assessed: 06/01/24 I am a: Patient What is your living situation today?: I have a steady place to live Within the past 12 months, did the food you bought not last and you didn't have the money to get more?: Never true Within the past 12 months, did you worry whether your food would run out before you got money to buy more?: Never true Do you have trouble paying for medicines?: No Do you have trouble getting transportation to medical appointments?: No Do you have trouble paying your heating and electricity bill?: No Do you have trouble taking care of your child, family member or friend?: No Do you have trouble with day-to-day activities such as bathing, preparing meals, shopping, managing finances, etc.?: No Are you currently unemployed and looking for a job?: No Are you interested in more education?: No Please select the resources that you would like help with: None Currently or been in a relationship where the following occur: No concerns reported THRIVE Score: 0 AUDIT C Alcohol Use Questionnaire (AUDIT-C) 1. How often do you have a drink containing alcohol?: Monthly or less 2. How many drinks containing alcohol do you have on a typical day when you are drinking?: 1 or 2 3. How often do you have six or more drinks on one occasion?: Never Total Score: 1 FILI-7 AMB Questionnaire FILI-7 Date FILI - 7 assessed: 05/05/24 Source: Developed by Drs. Morales Aguilar, Kaykay Gu, Daren Rick and colleagues, with an educational adryan from [employer]. Physical exam (Primary Care) Vital Signs: Last Vital Signs Pulse 68 10/20/24 14:54 Resp 14 10/20/24 14:54 BP 118/70 10/20/24 14:54 Pulse Ox 99 10/20/24 14:54 Oxygen Delivery Method Room Air 10/20/24 14:54 BMI result Body Mass Index 39.3 Tobacco/Smoking Status: Tobacco use Status Tobacco use date assessed 10/20/24 10/20/24 15:00 Patient Tobacco Use Status Former Tobacco user 10/20/24 15:13 e-Cigarette/Vaping Use Former Use 10/20/24 15:13 Thrive Assessment: Date of Thrive Assessment Date Thrive assessed 06/01/24 10/20/24 15:00 Currently or been in a relationship where the following occur: No concerns reported Const Orientation/consciousness: patient oriented x3 HENMT Ears: hearing grossly normal bilaterally Neck Thyroid: Thyroid normal Lymphatic: no lymphadenopathy noted Resp Auscultation: clear to auscultation bilaterally Cardio Rate: regular rate Rhythm: regular rhythm Heart sounds: S1 normal heart sound present and S2 normal heart sound present GI Inspection: Yes normal to inspection Palpation (GI): Soft to palpation and Other GI palpation findings present (nontender, no cva tenderness) Auscultation: normoactive bowel sounds Rectal Exam - Female: deferred Skin General skin exam: no rashes or lesions noted Neuro General: patient oriented x3, gait normal and no focal motor deficits Results AMB Hemoglobin A1c AMB Hemoglobin A1c 6.0 % Last Edit by Gaby Howard CMA on 10/20/24 15:15 Coding Level of Care Code Est Pt Level 4 (49067) Complex EM visit Add On G2211 Diagnoses KENZIE (iron deficiency anemia) D50.9 Severe obstructive sleep apnea G47.33 Type 2 diabetes mellitus associated with morbid obesity E11.69; E66.01 Assessment & Plan Assessment & Plan (1) KENZIE (iron deficiency anemia): Code(s): D50.9 - Iron deficiency anemia, unspecified Category: Medical Plan: on iron overdue colonoscopy. referred again. will let me know if this does not improve last menses was 05/2024 (2) Severe obstructive sleep apnea: Code(s): G47.33 - Obstructive sleep apnea (adult) (pediatric) Category: Medical Plan: she will contact sleep medicine (3) Type 2 diabetes mellitus associated with morbid obesity: Code(s): E11.69 - Type 2 diabetes mellitus with other specified complication; E66.01 - Morbid (severe) obesity due to excess calories Category: Medical Plan: a1c 6 today. will trulicity to 1.5 mg weekly. check dm labs today Orders: Orders Complete Blood Count Auto Diff Today D50.9 - Iron deficiency anemia, unspecified, E11.69 - Type 2 diabetes mellitus with other specified complication, E66.01 - Morbid (severe) obesity due to excess calories, G47.33 - Obstructive sleep apnea (adult) (pediatric) Microalbumin, Random (w Creat) Today D50.9 - Iron deficiency anemia, unspecified, E11.69 - Type 2 diabetes mellitus with other specified complication, E66.01 - Morbid (severe) obesity due to excess calories, G47.33 - Obstructive sleep apnea (adult) (pediatric) Vitamin B12 and Folate Today D50.9 - Iron deficiency anemia, unspecified, E11.69 - Type 2 diabetes mellitus with other specified complication, E66.01 - Morbid (severe) obesity due to excess calories, G47.33 - Obstructive sleep apnea (adult) (pediatric) AMB Hemoglobin A1c Today E11.69 - Type 2 diabetes mellitus with other specified complication, E66.01 - Morbid (severe) obesity due to excess calories Comprehensive [place]. Panel Fast Today D50.9 - Iron deficiency anemia, unspecified, E11.69 - Type 2 diabetes mellitus with other specified complication, E66.01 - Morbid (severe) obesity due to excess calories, G47.33 - Obstructive sleep apnea (adult) (pediatric) Hemoglobin A1c Today D50.9 - Iron deficiency anemia, unspecified, E11.69 - Type 2 diabetes mellitus with other specified complication, E66.01 - Morbid (severe) obesity due to excess calories, G47.33 - Obstructive sleep apnea (adult) (pediatric), R73.01 - Impaired fasting glucose Lipid Panel Today D50.9 - Iron deficiency anemia, unspecified, E11.69 - Type 2 diabetes mellitus with other specified complication, E66.01 - Morbid (severe) obesity due to excess calories, G47.33 - Obstructive sleep apnea (adult) (pediatric) TSH reflex Free T4 Today D50.9 - Iron deficiency anemia, unspecified, E11.69 - Type 2 diabetes mellitus with other specified complication, E66.01 - Morbid (severe) obesity due to excess calories, G47.33 - Obstructive sleep apnea (adult) (pediatric) IRON PROFILE Today D50.9 - Iron deficiency anemia, unspecified, E11.69 - Type 2 diabetes mellitus with other specified complication, E66.01 - Morbid (severe) obesity due to excess calories, G47.33 - Obstructive sleep apnea (adult) (pediatric) Ferritin Today D50.9 - Iron deficiency anemia, unspecified, E11.69 - Type 2 diabetes mellitus with other specified complication, E66.01 - Morbid (severe) obesity due to excess calories, G47.33 - Obstructive sleep apnea (adult) (pediatric) Referrals Gastroenterology Referral D50.9 - Iron deficiency anemia, unspecified, Z12.11 - Encounter for screening for malignant neoplasm of colon Medications: New dulaglutide (Trulicity) 1.5 mg (0.5 mL) subcut QWEEK 2 mL 2RF
[2024-10-20 14:54] VITALS: BP 118/70; PULSE 68; RESP 14; O2SAT 99; BMI 39.3
== END 2024-10-20 15:28 | disposition home or self-care (01) ==
LOC: HO.HMCFM 14:44
PROVIDERS: PCP Physician Assistant; Visit Provider Physician Assistant
DX: E11.69 Type 2 diabetes mellitus with other specified complication (principal); E66.01 Morbid (severe) obesity due to excess calories; Z68.39 Body mass index [BMI] 39.0-39.9, adult; D50.9 Iron deficiency anemia, unspecified; G47.33 Obstructive sleep apnea (adult) (pediatric)

== ENCOUNTER → 2024-10-20 14:43 | Outpatient (BNVA) | payer OTHER, SELFPAY | PROVIDERS: PCP Physician Assistant; Visit Provider Physician Assistant | DX: E11.69 Type 2 diabetes mellitus with other specified complication (principal); E66.01 Morbid (severe) obesity due to excess calories; Z68.39 Body mass index [BMI] 39.0-39.9, adult; D50.9 Iron deficiency anemia, unspecified; G47.33 Obstructive sleep apnea (adult) (pediatric) | CPT/HCPCS: 83036 ==

== ENCOUNTER 2024-10-20 15:31 | Outpatient (REF) | payer OTHER, SELFPAY ==
[2024-10-20 17:52] LABS: MANUAL DIFF FLAG NO
[2024-10-20 18:08] LABS: Estimated Average Glucose 120 mg/dL; Hemoglobin A1c % 5.8 % (<6.0)
[2024-10-20 18:15] LABS: Basophils Percent Auto 0.5 % (0-2); Eosinophils Absolute Auto 0.4 X10*3/uL (0.0-0.4); Eosinophils Percent Auto 5.2 % (0-4); Imm Gran Abs Auto 0.03 X10*3/uL (0.00-0.03); Imm Gran Pct Auto 0.4 % (0.0-0.4); Mean Corpuscular HGB Conc 32.4 g/dl (31.0-35.0); Mean Corpuscular Hemoglobin 29.1 pg (27.0-33.0); Mean Corpuscular Volume 89.6 fL (80.0-98.0); Mean Platelet Volume 10.7 fL (9.4-12.3); Monocytes Absolute Auto 0.5 X10*3/uL (0.1-1.2); Monocytes Percent Auto 5.7 % (2-11); Neutrophils Absolute Auto 5.1 x10*3/uL (2.0-8.3); Neutrophils Percent Auto 63.2 % (45-73); Platelet Count 302 X10*3/uL (160-400); Red Blood Count 4.13 X10*6/uL (4.20-5.50); Red Cell Distribution Width 15.2 % (11.0-16.0)
[2024-10-20 18:21] LABS: Microalbum/Creatinine Ratio Ur 6.1 ug/mg cr (<30)
[2024-10-20 18:24] LABS: Alanine Aminotransferase 41 U/L (0-31); Albumin Level 4.6 g/dL (3.5-5.0); Alkaline Phosphatase 65 U/L (39-117); Anion Gap 9 (12-20); Aspartate Amino Transferase 27 U/L (5-31); Bilirubin Total 0.8 mg/dL (0.0-1.0); Blood Urea Nitrogen 20 mg/dL (9-16); Calcium 9.7 mg/dL (8.4-10.2); Carbon Dioxide 30 mmol/L (22-29); Chloride 104 mmol/L (96-108); Cholesterol 160 mg/dL (<200); Estimated Glomerular Filt Rate > 60; Glucose Fasting 86 mg/dL (60-99); Glucose Random 85 mg/dL (60-115); HDL Cholesterol 34 mg/dL (>40); Iron 100 mcg/dL (30-160); LDL Cholesterol Calculated 105 mg/dL (<100); Percent Iron Saturation 35 % (15-50); Potassium 4.3 mmol/L (3.3-5.1); Sodium 139 mmol/L (135-145); Total Iron Binding Capacity 282 mcg/dL (228-428); Total Protein 7.7 g/dL (6.5-8.0); Triglycerides 107 mg/dL (<150); Unsaturated Iron Binding 182 ug/dL
[2024-10-20 18:31] LABS: Ferritin 46 ng/mL (10-250); TSH reflex Free T4 1.23 uIU/mL (0.32-4.0)
[2024-10-20 18:58] LABS: Folate 7.2 ng/mL (> or = 4.0); Vitamin B12 663 pg/mL (200-900)
== END 2024-10-20 15:32 | disposition home or self-care (01) ==
LOC: HO.WFDLDS 15:31
PROVIDERS: Visit Provider Physician Assistant
DX: E11.69 Type 2 diabetes mellitus with other specified complication (principal); E66.01 Morbid (severe) obesity due to excess calories; G47.33 Obstructive sleep apnea (adult) (pediatric); D50.9 Iron deficiency anemia, unspecified
CPT/HCPCS: 36415; 80053; 80061; 82043; 82570; 82607; 82728; 82746; 83036; 83540; 84443; 85025

== ENCOUNTER 2024-10-25 14:41 | Outpatient (REF) | payer OTHER, SELFPAY | END 2024-10-25 14:42 | disposition home or self-care (01) | LOC: HO.LAB 14:41 | PROVIDERS: PCP Physician Assistant; Visit Provider Advanced Practice Midwife | DX: Z13.89 Encounter for screening for other disorder (principal) ==

== ENCOUNTER 2024-10-25 14:41 | Outpatient (AMB) | payer OTHER, SELFPAY ==
[2024-10-25 14:43] VITALS: BP 122/64; BMI 39.2
--- NOTE | 2024-10-25 14:43 | A.OFFVIS_ITS ---
Vital Signs 10/25/24 14:43 Height 5 ft 6 in Weight 243 lb BMI 39.2 BP 122/64 Intake Visit Reasons: New patient Annual Intake Note: Last pap 01/2021 normal hx per pt pt c/o soreness/bump left labia Digital Analyst: Digital Analyst Present ([place]) Allergies Penicillins [PCN] Allergy (Verified 10/25/24 14:43) Unknown Sulfa (Sulfonamide Antibiotics) Allergy (Verified 10/25/24 14:43) Anaphylaxis sulfamethoxazole [From Bactrim] Allergy (Verified 10/25/24 14:43) Anaphylaxis trimethoprim [From Bactrim] Allergy (Verified 10/25/24 14:43) Anaphylaxis Is last menstrual period known: Yes Last menstrual period: 05/23/24 HPI Comments Details: She is a postmenopausal woman presenting for her new patient annual over the horizon targeting supervisor examination. New to the area, no previous notes from sales office administrator practice. Known to have uterine fibroids. She is doing well with over the horizon targeting supervisor concerns: LMP May 2024. Currently sexually active. Admits to left sided labial itch, and partner has symptoms too, after shaving. STI testing offered; she accepts. Attempting to eat a healthy diet with calcium and vitamin D, and stays active with exercise. Last pap smear; negative, 2019. Last mammogram; 2024. Colonoscopy is UTD. Denies any family history of breast, ovarian or colon cancer. History of uterine large, multiple fibroids seen at ED visit for AUB, March 2024. [facility] Medical History (Updated 10/25/24 @ 15:37 by Hilary Castro CNM) Fibroid Candidiasis of vulva and vagina Surgical History History of back surgery H/O section Family History Maternal Grandfather No problems noted. 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 Current occupational exposures/hazards: No Cognitive needs: No Hearing needs: No Vision needs: No Female Reproductive History Menstrual Date of last menstrual period: 05/23/24 Total pregnancies: 3 Full term: 1 Number of Living Children: 1 Ab spontaneous: 2 Date of Mammogram: 07/04/24 (Birad 1) Review of Systems Const All systems reviewed & are unremarkable except as noted in HPI and below Reports as per HPI Eyes Reports no additional complaints ENT Reports no additional complaints Card Reports no additional complaints Resp Reports no additional complaints GI Reports as per HPI and Reports no additional complaints Reports as per HPI Musc Reports no additional complaints Skin/Breast Reports as per HPI Neuro Reports no additional complaints Psych Reports no additional complaints Endo Reports no additional complaints Taj/Lymph Reports no additional complaints Aller/Immun Reports no additional complaints Physical Exam Vital Signs: Last Vital Signs BP 122/64 10/25/24 14:43 BMI result Body Mass Index 39.2 Const General: cooperative, healthy appearing, no acute distress, well developed and alert Orientation/consciousness: patient oriented x3 HEENT Head: Yes normal to inspection Eyes General: appearance normal, both eyes and all related structures Neck Neck: Yes normal visual inspection Thyroid: Thyroid normal Chest Chest palpation & inspection: normal inspection of the chest and other (no puckering, dimpling, peau de orange, retraction, discharge, masses) Breast/axilla inspection: normal inspection of the breasts Breast/axilla palpation: normal palpation of the breasts Resp Effort & Inspection: normal respiratory effort GI Inspection: Yes normal to inspection Palpation (GI): Soft to palpation Rectal Exam - Female: deferred General: Yes bladder normal to palpation External Female Exam: normal external appearance, normal appearance of the urethra and erythema Speculum Exam - Vagina: normal appearance of the vagina, normal palpation and abnormal vaginal discharge (Heavy amount of yeast) Speculum Exam - Cervix: normal appearance of the cervix and normal palpation Bimanual exam- vagina & uterus: normal bimanual exam, normal palpation, uterine size normal, bladder normal to palpation, normal palpation and enlarged Bimanual Exam- Adnexa, other: no masses Skin General skin exam: no rashes or lesions noted Rashes: no rashes Neuro General: patient oriented x3 Cognition (Neuro): normal cognition Extrem General: Yes normal to inspection Psych Attitude: cooperative Thought process: Normal thought process present Results Reviewed Results Reviewed: [address] [address] Ultrasound Report Signed Patient: Dia Carrion MR#: [id number] : 1970 Acct:[id number] Age/Sex: 53 / F ADM Date: 03/13/24 Loc: HO.ED Attending Dr: Ordering Physician: Solis Berg Date of Service: 03/13/24 Procedure(s): US pelvic and transvaginal Accession Number(s): [id number] cc: Solis Berg; Wandy Quezada~ EXAMINATION: US PELVIS CLINICAL INFORMATION: Vaginal bleeding, fibroids/ovarian COMPARISON: None available. TECHNIQUE: Ultrasound of the pelvis is performed using both transabdominal and transvaginal transducers along with Doppler. Transvaginal imaging is performed due to inadequate visualization transabdominally. FINDINGS: Uterus: The uterus is anteverted and measures 10.3 x 4.7 x 7.0 cm. The double wall endometrial thickness is 1.1 cm. Uterus revealed multiple uterine fibroids, measured 8.9 x 6.2 x 8.0 cm on the right, 4.8 x 5.5 x 5.2 cm on the left and 5.6 x 4.9 x 5.1 cm in the fundus, all fibroids are unabated endometrium Adnexa: Both ovaries are visualized. There is normal color flow to the adnexa. There is no ovarian torsion. There is no pelvic ascites or fluid collection. There is 2.5 x 2.1 x 1.9 cm cyst in right ovary Right ovary measures 4.5 x 4.2 x 4.2 cm cm. Left ovary measures 3.0 x 1.9 x 3.0 cm. US/US pelvic and transvaginal IMPRESSION: Multiple uterine fibroids abating endometrium. Left ovarian cyst Electronically signed by: Kashif Serrano MD 03/13/2024 03:38 PM EDT Dictated By: Kashif Serrano MD Signed By: <Electronically signed by Kashif Serrano MD in OV> 03/13/24 1538 DD/ 1358 TD/TT: 03/13/24 1432 Medical Claims Assistant: Assessment & Plan Assessment & Plan (1) Candidiasis of vulva and vagina: Code(s): B37.31 - Acute candidiasis of vulva and vagina Category: Medical Plan: Instructions: Clean with warm water, no soaps, scented products. Use a cool cloth to the area several times a day if swollen and/or uncomfortable. Wear loose, cotton underclothes, avoid tight outer clothing. Air when possible. No coitus until well healed. Complete all medications as prescribed. Await final pending results for any changes in the plan of care. Call the office if there is no improvement in 24-48hrs., or if worsening symptoms. Partner treatment-advise him to use use [id number] jock itch medication if unable to see provider. No intimacy until healed and both treated. The patient expressed understanding and agreement with the plan of care. All of her questions and concerns were addressed to the best of my ability. (2) Encounter for well woman exam with routine gynecological exam: Code(s): Z01.419 - Encounter for gynecological examination (general) (routine) without abnormal findings Category: Medical Plan: Discussed: Current recommendations for pap smears per ASCCP guidelines. Breast awareness, periodic self breast exams and yearly mammogram. Maintain a healthy lifestyle, well balanced diet including Calcium 1,200 mg and Vitamin D 600 IU daily, and routine exercise. Menopause verses perimenopause. Menopause is definitive of 1 year of no menses or 12 months in succession. Report any abnormal uterine bleeding in example prolonged episodes, or short intervals less than 24 days. Patient verbalizes understanding and agrees to the plan of care. She was given opportunity to ask questions and all questions were answered to the best of my ability. RTO in 1 year for annual over the horizon targeting supervisor exam. This note is constructed using voice recognition software. While every effort has been made to ensure accuracy, food and nutrition teacher errors may have been included. (3) Uterine fibroid: Code(s): D25.9 - Leiomyoma of uterus, unspecified Category: Medical Qualifiers: Uterine leiomyoma location: unspecified location (4) Fibroid: Code(s): D21.9 - Benign neoplasm of connective and other soft tissue, unspecified Category: Medical Plan: Discussed ultrasound findings-multiple large fibroids, history of ovarian cyst, uncertain side with a discrepancy of report. Plan Reviewed ultrasound findings-large fibroid multiples. Counseled re: Leiomyoma: common pelvic neoplasm. Differential diagnosis-may include but not limited to- leiomyosarcoma which is a rare uterine sarcoma 3-7/100,000, difficult to distinguish from fibroids on ultrasound from uterine sarcoma's. Unlikely any single test will have a highly positive predictive value. Hysterectomy is not recommended for sole purpose of excluding malignant neoplasm. Consult for surgical exploration, medical treatment, other treatments, verses expectant management, pros and cons, risks and benefits. Expectant management follow up in 6 months, then yearly for stability. Patient prefers to proceed with expectant management. Referral to MD if indicated for level of care if indicated Report any PMB/AUB, pelvic pressure, bloating, or pain. Ultrasound ordered plan follow up in person to discuss results. The patient expressed understanding and agreement with the plan of care. All of her questions and concerns were addressed to the best of my ability. Total time I personally spent on visit and management today: ?2o minutes. Time spent included review of pertinent office notes in the electronic health record; review of laboratory and imaging results; review of personal family medical history; performing physical exam; discussing diagnosis and plan of care with the patient; documenting the encounter in the EMR. Orders: Orders Bacterial Vaginosis Panel Today N89.8 - Other specified noninflammatory disorders of vagina CT NG by PCR Today N89.8 - Other specified noninflammatory disorders of vagina HPV High risk Today Z01.419 - Encounter for gynecological examination (general) (routine) without abnormal findings Pap Smear Today Z01.419 - Encounter for gynecological examination (general) (routine) without abnormal findings US pelvic and transvaginal Today D25.9 - Leiomyoma of uterus, unspecified Medications: New terconazole 0.4% 1 appful vaginal BEDTIME 7 days 45 grams 0RF clotrimazole-betamethasone 1-0.05 % apply externally a thin coat to the area 1 appl topical BID 7 days 45 grams 0RF itching Coding Level of Care Code Est Pt Level 3 (98194) New Pt Prev Care 40-64y(44211) Diagnoses Candidiasis of vulva and vagina B37.31 Encounter for well woman exam with routine gynecological exam Z01.419 Uterine fibroid D25.9 Uterine leiomyoma location: unspecified location Fibroid D21.9
== END 2024-10-25 15:40 | disposition home or self-care (01) ==
LOC: HO.HWS 14:41
PROVIDERS: PCP Physician Assistant; Visit Provider Advanced Practice Midwife
DX: Z01.419 Encounter for gynecological examination (general) (routine) without abnormal findings (principal); B37.31 Acute candidiasis of vulva and vagina; D25.9 Leiomyoma of uterus, unspecified
CPT/HCPCS: 99213; 99386; 99459

== ENCOUNTER 2024-10-25 15:17 | Outpatient (REF) | payer OTHER, SELFPAY ==
[2024-10-25 17:51] LABS: Bacterial Vaginosis PCR NEGATIVE (Negative); Candida Group PCR DETECTED (Not Detect); Candida glab krusei PCR NOT DETECTED (Not Detect); Trichomonas vaginalis PCR NOT DETECTED (Not Detect)
[2024-10-25 18:22] LABS: CT PCR NOT DETECTED (Not Detect.); NG PCR NOT DETECTED (Not Detect.)
== END 2024-10-25 15:18 | disposition home or self-care (01) ==
LOC: HO.LNP 15:17
PROVIDERS: Visit Provider Advanced Practice Midwife
DX: Z01.419 Encounter for gynecological examination (general) (routine) without abnormal findings (principal); N89.8 Other specified noninflammatory disorders of vagina
CPT/HCPCS: 81515; 87491; 87591; 87626; 88175

== ENCOUNTER → 2024-11-21 09:58 | Outpatient (AMB) | payer OTHER, SELFPAY ==
--- NOTE | 2024-11-21 10:22 | A.OFFVIS_ITS ---
Intake Intake Visit Reasons: 30 min Advisory Services Associate Required: No Accompanied by: Self / Same As Patient Allergies Penicillins (PCN) Allergy (Verified 10/25/24 14:43) Unknown Sulfa (Sulfonamide Antibiotics) Allergy (Verified 10/25/24 14:43) Anaphylaxis sulfamethoxazole (From Bactrim) Allergy (Verified 10/25/24 14:43) Anaphylaxis trimethoprim (From Bactrim) Allergy (Verified 10/25/24 14:43) Anaphylaxis HPI Comprehensive Diabetes Asmnt Most Recent Diabetes Results: Microalb/Creat Ratio, (<30) 6.1 ug/mg cr 10/20/24 Cholesterol, (<200) 160 mg/dL 10/20/24 HDL Cholesterol, (>40) 34 mg/dL L 10/20/24 Triglycerides, (<150) 107 mg/dL 10/20/24 Creatinine, (0.5-1.4) 0.80 mg/dL 10/20/24 BUN, (9-16) 20 mg/dL H 10/20/24 Sodium, (135-145) 139 mmol/L 10/20/24 Potassium, (3.3-5.1) 4.3 mmol/L 10/20/24 Chloride, (96-108) 104 mmol/L 10/20/24 Carbon Dioxide, (22-29) 30 mmol/L H 10/20/24 Calcium, (8.4-10.2) 9.7 mg/dL 10/20/24 AST, (5-31) 27 U/L 10/20/24 ALT, (0-31) 41 U/L H 10/20/24 Total Protein, (6.5-8.0) 7.7 g/dL 10/20/24 Albumin, (3.5-5.0) 4.6 g/dL 10/20/24 [facility] Medical History (Updated 10/25/24 @ 15:37 by Hilary Castro CNM) Fibroid Candidiasis of vulva and vagina Surgical History History of back surgery H/O section Family History Maternal Grandfather No problems noted. 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 2= needs review? 3= comprehend keep point? 4= demonstrates understanding/ competent? NC= Not Covered Topics Learning Objective: Initial visit Initial or post srvc Initial or post srvc Initial or post srvc Initial or post srvc Initial or post srvc Post srvc Comments Pre Edu-assessment/plan Outcome or reassess Outcome or reassess Outcome or reassess Outcome or reassess Outcome or reassess Outcome or reassess Diabetes pathophysiology 1 3 Healthy eating 1 3 Being active 1 3 Taking medication 1 Monitoring glucose 1 3 Acute complication 1 3 Chronic complicated 1 3 Lifestyle and healthy coping 1 4 Diabetes distress in support 1 4 ?Diabetes pathophysiology: ?Defined diabetes med identify own type of diabetes; list 3 options for treating diabetes Healthy eating: ?Described effect of type, amount and ?timing of food on blood glucose; list 3 methods for planning meal Being active: ?State effect of exercise on blood glucose level Taking medication: ?State effect of diabetes medications on diabetes; name diabetes medications taking, action and side effects Monitoring glucose: ?Identify recommended blood glucose targets and personal target Acute complication: ?List symptoms and treatment of hyper and hypoglycemia, DKA, sick day guidelines and guidelines for severe weather or situations of crisis and diabetes supply manage Chronic complication: ?To find the relationship of blood glucose levels to long- term complications of diabetes in screening and preventative measures Lifestyle and healthy coping: ?Described lifestyle and healthy coping strategies to rule out diabetes self-management Diabetes to stress and support: ?Recognize Diabetes to stress and be able to identified support options Learning objectives: The patient was provided with verbal and written education on the following topics as outlined below. Patient questions/concerns, patient's A1c on 10/20/2024 5.8%, down from 6.7% in June 2024 Patient reports she has lost approximately 35 lb since June 2024, when she stopped drinking alcohol and started changing eating habits She is now taking Trulicity 1.5 mg weekly, denies nausea, vomiting, GI side effects Overall patient feels successful in managing her diabetes. The patient met all learning objectives and was able to verbalize understanding and provide teach back of education topics discussed . The patient was provided with the opportunity to ask questions and all questions were answered. Topics covered in today?s session included: Medications (If applicable) * Name of medication? * Dosing/administration instructions? * Mechanism of action? * Potential side effects? * Potential adverse reaction and appropriate treatment? * Review onset, peak, duration Assess for concerns re: insurance coverage, cost, barriers to compliance Insulin/Injectables (If applicable) * Storage/care of insulin?? * Injection sites? * Site rotation? * Onset, peak, duration * Drawing up insulin? * Injecting insulin/other injectables? * Sharps disposal Continuous blood glucose monitoring (if applicable) Hypoglycemia and Hyperglycemia * Signs and symptoms? * Causes?? * Treatment? * Preventing hypoglycemia? * When to seek medical attention Smart Goal Assessment:? Patient will identify current foods in meal plan that contain carbohydrates Pt met goal 100% New Smart Goal: Patient will add 10-15 minutes of physical activity 3 times a week Patient Response to instructions: Comprehension of Instructions: Good Readiness to make changes:? action How confident they feel about making changes:positive Letter of completion of diabetes Education program will be sent to referring provider Portions of this note were created using voice recognition software, please excuse any words or phrases that may have been misinterpreted. Coding Level of Care Code Est Pt Level 1 (27255) Diagnoses Type 2 diabetes mellitus associated with morbid obesity E11.69; E66.01
== END ==
LOC: HO.ENCR 09:59
PROVIDERS: PCP Physician Assistant; Visit Provider Registered Nurse Diabetes Educator
DX: E11.69 Type 2 diabetes mellitus with other specified complication (principal); E66.01 Morbid (severe) obesity due to excess calories

== ENCOUNTER → 2024-11-21 09:58 | Outpatient (BNVA) | payer OTHER, SELFPAY | PROVIDERS: PCP Physician Assistant; Visit Provider Registered Nurse Diabetes Educator | DX: E11.69 Type 2 diabetes mellitus with other specified complication (principal); E66.01 Morbid (severe) obesity due to excess calories; Z79.4 Long term (current) use of insulin | CPT/HCPCS: 99211 ==

== ENCOUNTER 2024-12-09 14:59 | Outpatient (REF) | payer OTHER, SELFPAY ==
--- NOTE | ~2024-12-09 | US_ITS ---
EXAMINATION: US PELVIS TRANSABDOMINAL AND TRANSVAGINAL HISTORY: D25.9 - Leiomyoma of uterus, unspecified COMPARISON: Comparison is made with the prior examination dated 03/13/2024. TECHNIQUE: Transabdominal and endovaginal real-time 2D sharma-scale ultrasound was performed. FINDINGS: Uterus: The uterus is enlarged, measuring 12.1 x 9.0 x 15.3 cm. Myometrium has heterogeneous echotexture. Multiple fibroids are again noted including a right fundal fibroid measuring 8.9 x 7.3 x 7.9 cm (previously 8.9 x 6.2 x 8.0 cm), a right uterine body fibroid measuring 5.6 x 4.5 x 5.6 cm which was not seen previously, a left uterine body fibroid measuring 3.7 x 4.1 x 4.1 cm (previously 4.8 x 5.5 x 5.2 cm), and a left fundal fibroid measuring 3.3 x 2.5 x 2.5 cm (previously 5.6 x 4.9 x 5.1 cm). Endometrium: The endometrial stripe measures 5 mm in thickness. Right ovary: The right ovary measures 4.1 x 2.8 x 3.1 cm. The right ovary is normal in size and echotexture. Left ovary: The left ovary is not identified. Pelvic fluid: none. US/US pelvic and transvaginal IMPRESSION: 1. Fibroid uterus as described. 2. The left ovary is not visualized. Electronically signed by: Morales Mackay MD 12/12/2024 07:03 AM EDT
== END 2024-12-09 15:00 | disposition home or self-care (01) ==
LOC: HO.US 14:59
PROVIDERS: PCP Physician Assistant; Visit Provider Advanced Practice Midwife
DX: D25.9 Leiomyoma of uterus, unspecified (principal)
CPT/HCPCS: 76830; 76856

== ENCOUNTER → 2024-12-09 15:03 | Outpatient (BNV) | payer OTHER, SELFPAY | PROVIDERS: PCP Physician Assistant; Visit Provider Radiology Diagnostic Radiology | DX: D25.9 Leiomyoma of uterus, unspecified (principal) | CPT/HCPCS: 76830; 76856 ==

== ENCOUNTER 2024-12-20 14:34 | Outpatient (AMB) | payer OTHER, SELFPAY ==
--- NOTE | 2024-12-20 14:45 | MHC.OFFVIS ---
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 LMP this week, heavy the 1st day on day 2 now, prior LMP was May 2024. History of anemia, labs 09/2024 normal range. [facility] Medical History (Updated 10/25/24 @ 15:37 by Hilary Castro CNM) Fibroid Candidiasis of vulva and vagina Surgical History History of back surgery H/O section Family History Maternal Grandfather No problems noted. 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 Current occupational exposures/hazards: No Cognitive needs: No Hearing needs: No Vision needs: No Female Reproductive History Menstrual Date of last menstrual period: 12/19/24 Total pregnancies: 3 Full term: 1 Review of Systems Const All systems reviewed & are unremarkable except as noted in HPI and below Endo Reports no additional complaints Physical Exam Const General: cooperative, healthy appearing and no acute distress Psych Appearance: well kempt Attitude: cooperative Thought process: Normal thought process present Results Reviewed Results Reviewed: [address] [address] Ultrasound Report Signed Patient: Dia Carrion MR#: [id number] : 1970 Acct:[id number] Age/Sex: 54 / F ADM Date: 12/09/24 Loc: HO.US Attending Dr: Hilary Castro CNM Ordering Physician: Hilary Castro CNM Date of Service: 12/09/24 Procedure(s): US pelvic and transvaginal Accession Number(s): [id number] cc: Wandy Quezada; Hilary Castro CNM~ EXAMINATION: US PELVIS TRANSABDOMINAL AND TRANSVAGINAL HISTORY: D25.9 - Leiomyoma of uterus, unspecified COMPARISON: Comparison is made with the prior examination dated 03/13/2024. TECHNIQUE: Transabdominal and endovaginal real-time 2D sharma-scale ultrasound was performed. FINDINGS: Uterus: The uterus is enlarged, measuring 12.1 x 9.0 x 15.3 cm. Myometrium has heterogeneous echotexture. Multiple fibroids are again noted including a right fundal fibroid measuring 8.9 x 7.3 x 7.9 cm (previously 8.9 x 6.2 x 8.0 cm), a right uterine body fibroid measuring 5.6 x 4.5 x 5.6 cm which was not seen previously, a left uterine body fibroid measuring 3.7 x 4.1 x 4.1 cm (previously 4.8 x 5.5 x 5.2 cm), and a left fundal fibroid measuring 3.3 x 2.5 x 2.5 cm (previously 5.6 x 4.9 x 5.1 cm). Endometrium: The endometrial stripe measures 5 mm in thickness. Right ovary: The right ovary measures 4.1 x 2.8 x 3.1 cm. The right ovary is normal in size and echotexture. Left ovary: The left ovary is not identified. Pelvic fluid: none. US/US pelvic and transvaginal IMPRESSION: 1. Fibroid uterus as described. 2. The left ovary is not visualized. 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 Expectant management follow up in 6 months, then yearly for stability. Patient prefers to proceed with expectant management. Referral to MD if indicated for level of care if indicated Report any PMB/AUB, pelvic pressure, bloating, or pain. (2) Menorrhagia: Code(s): N92.0 - Excessive and frequent menstruation with regular cycle Qualifiers: Menorrhagia type: with irregular cycle Qualified Code(s): N92.1 - Excessive and frequent menstruation with irregular cycle Plan Plan a CBC this week, increase oral hydration. Menopause verses perimenopause. Menopause is definitive of 1 year of no menses or 12 months in succession. Report any abnormal uterine bleeding in example prolonged episodes, or short intervals less than 24 days. Follow up pending labs. The patient expressed understanding and agreement with the plan of care. All of her questions and concerns were addressed to the best of my ability. This note is constructed using voice recognition software. While every effort has been made to ensure accuracy, bilingual administrative assistant errors may have been included. Orders: Orders Complete Blood Count no Diff Today N92.0 - Excessive and frequent menstruation with regular cycle US pelvic and transvaginal 6 Months D25.9 - Leiomyoma of uterus, unspecified Coding Level of Care Code Est Pt Level 3 (90418) Diagnoses Uterine leiomyoma, unspecified location D25.9 Uterine leiomyoma location: unspecified location Menorrhagia with irregular cycle N92.1 Menorrhagia type: with irregular cycle
[2024-12-20 15:00] VITALS: BP 126/84; BMI 39.5
== END 2024-12-20 15:22 | disposition home or self-care (01) ==
LOC: HO.HWS 14:35
PROVIDERS: PCP Physician Assistant; Visit Provider Advanced Practice Midwife
DX: D25.9 Leiomyoma of uterus, unspecified (principal); N92.1 Excessive and frequent menstruation with irregular cycle
CPT/HCPCS: 99213

== ENCOUNTER 2025-01-26 10:53 | Outpatient (REF) | payer OTHER, SELFPAY ==
[2025-01-26 14:35] LABS: Hematocrit 37.7 % (37.0-47.0); Hemoglobin 12.4 g/dl (12.0-16.0); Mean Corpuscular HGB Conc 32.9 g/dl (31.0-35.0); Mean Corpuscular Hemoglobin 30.3 pg (27.0-33.0); Mean Corpuscular Volume 92.2 fL (80.0-98.0); NRBC Abs Auto 0.000 X10*3/uL (0.0-0.012); NRBC Pct Auto 0.0 /100WBC (0.0-0.2); Platelet Count 265 X10*3/uL (160-400); Red Blood Count 4.09 X10*6/uL (4.20-5.50); White Blood Count 7.6 X10*3/uL (4.8-10.8)
[2025-01-26 15:02] LABS: Iron 108 mcg/dL (30-160); Percent Iron Saturation 36 % (15-50); Total Iron Binding Capacity 300 mcg/dL (228-428); Unsaturated Iron Binding 192 ug/dL
[2025-01-26 15:16] LABS: Ferritin 38 ng/mL (10-250)
[2025-01-26 15:33] LABS: Folate 3.9 ng/mL (> or = 4.0); Vitamin B12 633 pg/mL (200-900)
== END 2025-01-26 10:54 | disposition home or self-care (01) ==
LOC: HO.WFDLDS 10:53
PROVIDERS: Advanced Practice Midwife; PCP Physician Assistant; Visit Provider Physician Assistant
DX: E11.69 Type 2 diabetes mellitus with other specified complication (principal); E66.01 Morbid (severe) obesity due to excess calories; D50.9 Iron deficiency anemia, unspecified; N92.0 Excessive and frequent menstruation with regular cycle; Z79.85 Long-term (current) use of injectable non-insulin antidiabetic drugs; Z68.37 Body mass index [BMI] 37.0-37.9, adult
CPT/HCPCS: 36415; 82607; 82728; 82746; 83540; 85027

== ENCOUNTER 2025-01-26 10:53 | Outpatient (AMB) | payer OTHER, SELFPAY ==
--- NOTE | 2025-01-26 11:11 | MHC.PC.OV ---
Vital Signs 01/26/25 11:15 Height 5 ft 6 in Weight 230 lb 2 oz BMI 37.1 BP 110/72 Blood Pressure Location Lt brachial Position Sitting Respiration 14 Pulse 70 Pulse Source Pulse Oximeter Pulse Oximetry (%) 100 Oxygen Delivery Method Room Air Intake Visit Reasons: dm Intake Note: Diabetes follow up Contact Agent Required: No Allergies Penicillins (PCN) Allergy (Verified 01/26/25 11:13) Unknown Sulfa (Sulfonamide Antibiotics) Allergy (Verified 01/26/25 11:13) Anaphylaxis sulfamethoxazole (From Bactrim) Allergy (Verified 01/26/25 11:13) Anaphylaxis trimethoprim (From Bactrim) Allergy (Verified 01/26/25 11:13) Anaphylaxis Medication List - Last Reconciled 01/26/25 by Wandy Quezada PA-C acetaminophen (Tylenol Extra Strength) 500 mg PO Q6H PRN blood sugar diagnostic (FreeStyle Lite Strips) Use daily As directed to check blood glucose blood-glucose meter (FreeStyle Lite Meter kit) Use daily As directed to check blood sugars celecoxib mg PO BID dulaglutide (Trulicity) 1.5 mg (0.5 mL) subcut QWEEK ferrous sulfate (FeroSul) 325 mg PO DAILY gabapentin 200 mg (2 x 100 mg) PO BID 90 days MDD 200mg PO daily [Paula Ashwaganda PO] lancets (FreeStyle Lancets) use daily as directed to check blood glucose magnesium citrate,mag oxide 500 mg PO DAILY pyridoxine (vitamin B6) 250 mg PO DAILY 90 days Tobacco use date assessed: 01/26/25 Dental Screening Dental Screen Date: 10/20/24 HPI dm HPI Details Patient is a 54-year-old female who presents today for a follow up. She has a significant past medical history of iron-deficiency anemia, likely secondary to menorrhagia, uterine fibroids, obesity, chronic low back pain with previous surgery in 2013, hx of alcohol abuse, binge eating and elevated blood pressure readings. Pulm: Recently sleep study was performed and did come back with moderate to severe sleep apnea. She was referred to sleep Medicine. States she never got the cpap. She is calling them. CV: Blood pressure today in the office is 110/72 Endo: a1c 5.5. She was started on Trulicity 1.5 mg weekly. She is tolerating well. She has noticed significant appetite suppression and likes this medication. She is wondering about increasing the dose. Since our last visit I did send in testing supplies and she has been checking her blood sugars and states they are less than 120. She denies any polyuria or polydipsia. Since our last visit she states that she has worked hard on her diet. She has lost about 45 lbs since initially coming here. -never tried metformin, doing well with trulicity. Psych: Last drink was 06/04/24. Musculoskeletal: Right and Left knee pain x 1-2 years. She is following with Orthopedics. States it is significantly improved. 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 quit in 2015. Father had prostate ca. [facility] Medical History (Updated 01/26/25 @ 12:41 by Wandy Quezada PA-C) Fibroid Candidiasis of vulva and vagina Surgical History History of back surgery H/O section Family History Maternal Grandfather No problems noted. 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 Current occupational exposures/hazards: No Cognitive needs: No Hearing needs: No Vision needs: No Questionnaire Thrive Questionnaire Date Thrive assessed: 06/01/24 I am a: Patient What is your living situation today?: I have a steady place to live Within the past 12 months, did the food you bought not last and you didn't have the money to get more?: Never true Within the past 12 months, did you worry whether your food would run out before you got money to buy more?: Never true Do you have trouble paying for medicines?: No Do you have trouble getting transportation to medical appointments?: No Do you have trouble paying your heating and electricity bill?: No Do you have trouble taking care of your child, family member or friend?: No Do you have trouble with day-to-day activities such as bathing, preparing meals, shopping, managing finances, etc.?: No Are you currently unemployed and looking for a job?: No Are you interested in more education?: No Please select the resources that you would like help with: None Currently or been in a relationship where the following occur: No concerns reported THRIVE Score: 0 FILI-7 AMB Questionnaire FILI-7 Date FILI - 7 assessed: 05/05/24 Source: Developed by Drs. Morales Aguilar, Kaykay Gu, Daren Rick and colleagues, with an educational adryan from [employer]. Physical exam (Primary Care) Vital Signs: Last Vital Signs Pulse 70 01/26/25 11:15 Resp 14 01/26/25 11:15 BP 110/72 01/26/25 11:15 Pulse Ox 100 01/26/25 11:15 Oxygen Delivery Method Room Air 01/26/25 11:15 BMI result Body Mass Index 37.1 Tobacco/Smoking Status: Tobacco use Status Tobacco use date assessed 01/26/25 01/26/25 11:20 Patient Tobacco Use Status Former Tobacco user 01/26/25 11:12 e-Cigarette/Vaping Use Former Use 01/26/25 11:12 Thrive Assessment: Date of Thrive Assessment Date Thrive assessed 06/01/24 01/26/25 11:12 Currently or been in a relationship where the following occur: No concerns reported Coding Level of Care Code Est Pt Level 4 (97317) Complex EM visit Add On G2211 Diagnoses Severe obesity (BMI >= 40) E66.01 Type 2 diabetes mellitus associated with morbid obesity E11.69; E66.01 Uterine leiomyoma, unspecified location D25.9 Uterine leiomyoma location: unspecified location KENZIE (iron deficiency anemia) D50.9 Assessment & Plan Assessment & Plan (1) Severe obesity (BMI >= 40): Code(s): E66.01 - Morbid (severe) obesity due to excess calories Category: Medical Plan: Improved. (2) Type 2 diabetes mellitus associated with morbid obesity: Code(s): E11.69 - Type 2 diabetes mellitus with other specified complication; E66.01 - Morbid (severe) obesity due to excess calories Category: Medical Plan: Doing very well with Trulicity. Increase dose of 3 mg. (3) Uterine fibroid: Code(s): D25.9 - Leiomyoma of uterus, unspecified Category: Medical Qualifiers: Uterine leiomyoma location: unspecified location Qualified Code(s): D25.9 - Leiomyoma of uterus, unspecified Plan: Following with gynecology. Has a follow up scheduled for a repeat ultrasound (4) KENZIE (iron deficiency anemia): Code(s): D50.9 - Iron deficiency anemia, unspecified Category: Medical Plan: We will check labs. On iron supplements. Orders: Orders IRON PROFILE Today D50.9 - Iron deficiency anemia, unspecified, E11.69 - Type 2 diabetes mellitus with other specified complication, E66.01 - Morbid (severe) obesity due to excess calories AMB Hemoglobin A1c Today E11.69 - Type 2 diabetes mellitus with other specified complication, E66.01 - Morbid (severe) obesity due to excess calories Ferritin Today D50.9 - Iron deficiency anemia, unspecified, E11.69 - Type 2 diabetes mellitus with other specified complication, E66.01 - Morbid (severe) obesity due to excess calories Vitamin B12 and Folate Today D50.9 - Iron deficiency anemia, unspecified, E11.69 - Type 2 diabetes mellitus with other specified complication, E66.01 - Morbid (severe) obesity due to excess calories Medications: New dulaglutide (Trulicity) 3 mg (0.5 mL) subcut QWEEK 2 mL 5RF Discontinued dulaglutide (Trulicity) Discontinued Reason: Doctor's Order 1.5 mg (0.5 mL) subcut QWEEK 2 mL 2RF
[2025-01-26 11:15] VITALS: BP 110/72; PULSE 70; RESP 14; O2SAT 100; BMI 37.1
== END 2025-01-26 11:41 | disposition home or self-care (01) ==
LOC: HO.HMCFM 10:54
PROVIDERS: PCP Physician Assistant; Visit Provider Physician Assistant
DX: E11.69 Type 2 diabetes mellitus with other specified complication (principal); E66.01 Morbid (severe) obesity due to excess calories; D50.9 Iron deficiency anemia, unspecified; Z68.37 Body mass index [BMI] 37.0-37.9, adult; D25.9 Leiomyoma of uterus, unspecified